=== PATIENT | male | born 1965 | race African-American/Black ===

== ENCOUNTER 2017-12-02 07:51 | Inpatient (IN) | payer MEDICARE, OTHER ==
[~2017-12-02] VITALS: Ht 175.3 cm; Wt 65.0 kg
[2017-12-02] VITALS (9 sets, daily range): BP systolic 133–145; BP diastolic 74–92; PULSE 90–98; RESP 16–20; TEMP 95.8–99.9; O2SAT 79–100
[~2017-12-02 07:51] MED LIST: THIA100T PO
--- NOTE | 2017-12-02 07:56 | PD ---
HPI Chief Complaint: abdominal pain Time Seen by Provider: 07:56 Travel History International Travel<30 days: No Contact w/Intl Traveler<30days: No Traveled to known affect area: No History of Present Illness HPI 52-year-old male came to the emergency room complaining of abdominal pain that started this morning. Patient was brought in by EMS. He is extremely disheveled and poor hygiene. He could be a homeless. Patient denies having this kind of pain in the past. He thinks because he did not eat anything in past 24 hours could be the cause of his pain. Upon asking he said he had one beer last night. No history of vomiting or diarrhea. Patient points to the center of his abdomen when I asked the location of the pain. No radiation of the pain as far as I understand. No known aggravating or relieving factors patient identified. Vital signs are otherwise stable. Patient appears to be in moderate distress. PFSH Past Medical History Narrative Medical List of his past medical, surgical, social and family history is reviewed from the nursing note. Hx Anticoagulant Therapy: No Arthritis: Yes Asthma: Yes Autoimmune Disease: No Blood Disorders: No Bipolar Disorder: Yes Anxiety: Yes Depression: Yes Heart Rhythm Problems: No Cancer: No Cardiovascular Problems: No High Cholesterol: No Chemotherapy: No Chest Pain: No Congestive Heart Failure: No COPD: No Cerebrovascular Accident: Yes Diabetes: Yes Diminished Hearing: No Endocrine: No Gastrointestinal Disorders: No Glaucoma: No Genitourinary: No Headaches: Yes Hepatitis: No Hypertension: Yes Immune Disorder: No Kidney Stones: No Musculoskeletal: No Neurologic: Yes Psychiatric: Yes Reproductive: No Respiratory: No Immunizations Current: No Migraines: No Myocardial Infarction: No Radiation Therapy: No Renal Failure: No Schizophrenia: Yes (NOT TAKING MEDS) Seizures: No Sleep Apnea: No Thyroid Disease: No Past Surgical History Abdominal Surgery: No AICD: No Arteriovenous Shunt: No Cardiac Surgery: No Ear Surgery: No Endocrine Surgery: No Eye Surgery: No Genitourinary Surgery: No Gynecologic Surgery: No Joint Replacement: No Neurologic Surgery: No Oral Surgery: No Pacemaker: No Thoracic Surgery: No Other Surgery: No Social History Alcohol Use: Yes (2-3 24OZ BEER/DAY) Tobacco Use: No Substance Use: No (denies) Allergies-Medications (Allergen,Severity, Reaction): Coded Allergies: No Known Allergies (Verified Allergy, Unknown, 12/02/17) Comments No known drug allergies. Reported Meds & Prescriptions Reported Meds & Active Scripts Active No Active Prescriptions or Reported Medications Narrative Medication List of his home medications reviewed from the nursing note. Review of Systems Except as stated in HPI: all other systems reviewed are Neg Gastrointestinal: Positive: Abdominal Pain Physical Exam Narrative GENERAL: Awake, alert, moderate distress, disheveled and poor hygiene SKIN: Focused skin assessment warm/dry. Poor hygiene HEAD: Atraumatic. Normocephalic. EYES: Pupils equal and round. No scleral icterus. No injection or drainage. ENT: No nasal bleeding or discharge. Mucous membranes pink and moist. Poor dentition NECK: Trachea midline. No JVD. CARDIOVASCULAR: Regular rate and rhythm. No murmur appreciated. RESPIRATORY: No accessory muscle use. Clear to auscultation. Breath sounds equal bilaterally. GASTROINTESTINAL: Abdomen soft, non-tender, nondistended. Hepatic and splenic margins not palpable. MUSCULOSKELETAL: No obvious deformities. No clubbing. No cyanosis. No edema. NEUROLOGICAL: Awake and alert. No obvious cranial nerve deficits. Motor grossly within normal limits. Normal speech. PSYCHIATRIC: Appropriate mood and affect; insight and judgment normal. Data Data Last Documented VS Vital Signs Date Time Temp Pulse Resp B/P (MAP) Pulse Ox O2 Delivery O2 Flow Rate FiO2 12/02/17 08:16 20 99 Room Air 12/02/17 07:57 98.0 90 145/92 (109) Orders Orders Complete Blood Count With Diff (12/02/17 08:05) Comprehensive Metabolic Panel (12/02/17 08:05) Lipase (12/02/17 08:05) Urinalysis - C+S If Indicated (12/02/17 08:05) Iv Access Insert/Monitor (12/02/17 08:05) Ecg Monitoring (12/02/17 08:05) Oximetry (12/02/17 08:05) Pantoprazole Inj (Protonix Inj) (12/02/17 08:15) Sodium Chlor 0.9% 1000 Ml Inj (Ns 1000 M (12/02/17 08:05) Sodium Chloride 0.9% Flush (Ns Flush) (12/02/17 08:15) Electrocardiogram (12/02/17 08:05) Troponin I (12/02/17 08:29) Alcohol (Ethanol) (12/02/17 08:53) Hydromorphone Pf Inj (Dilaudid Pf Inj) (12/02/17 09:00) Ondansetron Inj (Zofran Inj) (12/02/17 09:00) Sodium Chlor 0.9% 1000 Ml Inj (Ns 1000 M (12/02/17 09:00) Admit Order (Ed Use Only) (12/02/17 09:28) Labs Laboratory Tests Test 12/02/17 08:07 White Blood Count 4.5 TH/MM3 Red Blood Count 4.04 MIL/MM3 Hemoglobin 12.8 GM/DL Hematocrit 38.7 % Mean Corpuscular Volume 95.9 FL Mean Corpuscular Hemoglobin 31.7 PG Mean Corpuscular Hemoglobin Concent 33.1 % Red Cell Distribution Width 12.6 % Platelet Count 115 TH/MM3 Mean Platelet Volume 6.7 FL Neutrophils (%) (Auto) 74.8 % Lymphocytes (%) (Auto) 18.7 % Monocytes (%) (Auto) 5.9 % Eosinophils (%) (Auto) 0.1 % Basophils (%) (Auto) 0.5 % Neutrophils # (Auto) 3.4 TH/MM3 Lymphocytes # (Auto) 0.8 TH/MM3 Monocytes # (Auto) 0.3 TH/MM3 Eosinophils # (Auto) 0.0 TH/MM3 Basophils # (Auto) 0.0 TH/MM3 CBC Comment DIFF FINAL Differential Comment Blood Urea Nitrogen 5 MG/DL Creatinine 0.66 MG/DL Random Glucose 77 MG/DL Total Protein 9.2 GM/DL Albumin 4.4 GM/DL Calcium Level 9.3 MG/DL Alkaline Phosphatase 100 U/L Aspartate Amino Transf (AST/SGOT) 127 U/L Alanine Aminotransferase (ALT/SGPT) 51 U/L Total Bilirubin 0.5 MG/DL Sodium Level 137 MEQ/L Potassium Level 3.9 MEQ/L Chloride Level 101 MEQ/L Carbon Dioxide Level 23.7 MEQ/L Anion Gap 12 MEQ/L Estimat Glomerular Filtration Rate 154 ML/MIN Troponin I LESS THAN 0.02 NG/ML Lipase 3910 U/L Ethyl Alcohol Level 122 MG/DL [facility] Medical Decision Making Medical Screen Exam Complete: Yes Emergency Medical Condition: Yes Medical Record Reviewed: Yes Interpretation(s) Twelve-lead EKG was reviewed by me. Normal sinus rhythm, normal axis, LVH by voltage criteria, septal T-wave inversion. Heart rate of 78 bpm. Differential Diagnosis Acute pancreatitis, acute cholecystitis, ACS Narrative Course 8:55 AM blood test results of back and patient's lipase is significantly elevated. Awaiting for the troponin and alcohol level. Patient was initially given 1 L of IV fluid bolus and IV Protonix. I'll order pain medication and another liter bolus. Patient will need to be admitted for acute pancreatitis. Awaiting for the admitting physician to call back. Procedures EKG Prior to Arrival: No Diagnosis Primary Impression: Acute pancreatitis Qualified Codes: K85.20 - Alcohol induced acute pancreatitis without necrosis or infection Additional Impression: Intractable abdominal pain Admitting Information Admitting Physician Requests: Admit Scripts No Active Prescriptions or Reported Meds Demetrio Hawthorne MD Dec 02, 2017 07:56
[2017-12-02] MEDS ORDERED: SODIUM CHLOR 0.9% 1000 ML INJ 1,000 ML IV SCH (08:05)
[2017-12-02] MEDS ORDERED: SODIUM CHLORIDE 0.9% FLUSH 10 ML FLUSH IV FLUSH PRN ×2 (08:15→10:15)
[2017-12-02] MEDS ORDERED: PANTOPRAZOLE SODIUM 40 MG VIAL IVP ONE (08:15)
[2017-12-02 08:22] LABS: AUTOMATED NEUTROPHIL # 3.4 TH/MM3 (1.8-7.7); BASOPHIL % 0.5 % (0.0-2.0); EOSINOPHIL % 0.1 % (0.0-4.0); HEMATOCRIT 38.7 % (39.0-51.0); HEMOGLOBIN 12.8 GM/DL (13.0-17.0); LYMPH % 18.7 % (9.0-44.0); LYMPHOCYTE # 0.8 TH/MM3 (1.0-4.8); MEAN CELL VOLUME 95.9 FL (80.0-100.0); MEAN CORPUSCULAR HEMOGLOBIN 31.7 PG (27.0-34.0); MEAN CORPUSCULAR HGB CONC 33.1 % (32.0-36.0); MEAN PLATELET VOLUME 6.7 FL (7.0-11.0); MONO % 5.9 % (0.0-8.0); MONOCYTE # 0.3 TH/MM3 (0-0.9); NEUT % 74.8 % (16.0-70.0); PLATELET COUNT 115 TH/MM3 (150-450); RED BLOOD COUNT 4.04 MIL/MM3 (4.50-5.90); RED CELL DISTRIBUTION WIDTH 12.6 % (11.6-17.2); WHITE BLOOD COUNT 4.5 TH/MM3 (4.0-11.0)
[2017-12-02 08:36] LABS: ALBUMIN 4.4 GM/DL (3.4-5.0); ALT (GPT) 51 U/L (12-78); AST (GOT) 127 U/L (15-37); BICARBONATE 23.7 MEQ/L (21.0-32.0); BLOOD UREA NITROGEN 5 MG/DL (7-18); CALCIUM 9.3 MG/DL (8.5-10.1); CHLORIDE 101 MEQ/L (98-107); CREATININE 0.66 MG/DL (0.60-1.30); GLOMERULAR FILTRATION RATE 154 ML/MIN (>89); GLUCOSE,RANDOM 77 MG/DL (74-106); SODIUM (NA) 137 MEQ/L (136-145)
[2017-12-02 08:38] LABS: ALKALINE PHOSPHATASE 100 U/L (45-117); TOTAL BILIRUBIN ADULT 0.5 MG/DL (0.2-1.0); TOTAL PROTEIN 9.2 GM/DL (6.4-8.2)
[2017-12-02] MEDS ORDERED: HYDROmorphone HCL PF 1 MG/ML VIAL IV PUSH ONE (09:00)
[2017-12-02] MEDS ORDERED: ONDANSETRON HCL 4 MG/2 ML VIAL IV PUSH ONE (09:00)
[2017-12-02] MEDS ORDERED: SODIUM CHLOR 0.9% 1000 ML INJ 1,000 ML IV ONE (09:00)
--- NOTE | 2017-12-02 09:55 | HHI.HP ---
HPI Service Family Medicine Primary Care Physician Unknown Admission Diagnosis acute pancreatitis, intractable abdominal pain Diagnoses: Chief Complaint: abdominal pain International Travel<30 Days: No Contact w/Intl Traveler<30days: No Known Affected Area: No History of Present Illness Mr Demarco is a 52 YO male with PMHx of headaches, asthma and EtOH abuse who presents with acute abdominal pain overnight with no N/V/D. Pt states problem began overnight w/abdom pain 10/10 on pain scale. Pain is like a screw being bored thru him; just in his stomach. There is no radiation. States he had a similar problem about 3 years ago. Also states he is a little short of breath but takes no meds for his asthma. He has been hospitalized at [facility] before numerous times, but not since Jul 2016. Pt is homeless and drinks 1-3 beers 3-4 times per week. His last drink was last night. He also states he has not eaten since yesterday and is not hungry now. Denies having EtOH withdrawal seizure before but has gotten the shakes when withdrawing. Denies CP, DVT pain. (Alfredo Mccullough MD R1) Review of Systems Constitutional: COMPLAINS OF: Change in appetite (hasnt eaten since yesterday) , DENIES: Chills, Dizziness Eyes: COMPLAINS OF: Blurred vision, DENIES: Vision loss Respiratory: COMPLAINS OF: Shortness of breath, DENIES: Cough Cardiovascular: DENIES: Chest pain, Palpitations Gastrointestinal: COMPLAINS OF: Abdominal pain, DENIES: Diarrhea, Nausea, Vomiting Genitourinary: DENIES: Urinary incontinence, Urgency Musculoskeletal: DENIES: Muscle aches Integumentary: DENIES: Rash Neurologic: DENIES: Headache, Seizures (Alfredo Mccullough MD R1) Past Family Social History Past Medical History Headaches Asthma Past Surgical History None Reported Medications Reported Meds & Active Scripts Active No Active Prescriptions or Reported Medications (Alfredo Mccullough MD R1) Allergies: Coded Allergies: No Known Allergies (Verified Allergy, Unknown, 12/02/17) Active Ordered Medications Current Medications Medications (Trade) Dose Ordered Sig/Edy Route Start Time Stop Time Status Last Admin (NS Flush) 2 ml UNSCH PRN IV FLUSH 12/02/17 08:15 Sodium Chloride 1,000 ml @ 999 mls/hr BOLUS ONCE IV 12/02/17 09:00 12/02/17 10:00 Social History Homeless; has been to a nursing home before EtOH - yes Tobacco - no Drugs - no (Alfredo Mccullough MD R1) Physical Exam Vital Signs Vital Signs Date Time Temp Pulse Resp B/P (MAP) Pulse Ox O2 Delivery O2 Flow Rate FiO2 12/02/17 09:31 16 99 Nasal Cannula 2.00 12/02/17 09:30 16 79 Room Air 12/02/17 08:16 20 99 Room Air 12/02/17 07:57 98.0 90 20 145/92 (109) 99 Physical Exam GENERAL: This is a thin and unkempt middle aged man lying in bed who smells of urine. SKIN: No rashes, ecchymoses or lesions. Cool and dry. HEAD: Atraumatic. Normocephalic. No scalp tenderness. EYES: Pupils equal round and reactive. Extraocular motions intact. No scleral icterus. No injection or drainage. ENT: Nose without bleeding or drainage. Throat without erythema, tonsillar hypertrophy or exudate. Uvula midline. Airway patent. Poor dentition. NECK: Trachea midline. No JVD or lymphadenopathy. Supple, nontender, no meningeal signs. CARDIOVASCULAR: Regular rate and rhythm without murmurs, gallops, or rubs. RESPIRATORY: Clear to auscultation. Breath sounds equal bilaterally. No wheezes , rales, or rhonchi. GASTROINTESTINAL: Abdomen soft, moderately TTP, nondistended. No hepato- splenomegaly, or palpable masses. No guarding. MUSCULOSKELETAL: Extremities without clubbing, cyanosis, or edema. No joint tenderness, effusion, or edema noted. No calf tenderness. NEUROLOGICAL: Awake and alert. Cranial nerves II through XII intact. Motor and sensory grossly within normal limits. Five out of 5 muscle strength in all muscle groups. Normal speech. Laboratory Laboratory Tests Test 12/02/17 08:07 White Blood Count 4.5 Red Blood Count 4.04 Hemoglobin 12.8 Hematocrit 38.7 Mean Corpuscular Volume 95.9 Mean Corpuscular Hemoglobin 31.7 Mean Corpuscular Hemoglobin Concent 33.1 Red Cell Distribution Width 12.6 Platelet Count 115 Mean Platelet Volume 6.7 Neutrophils (%) (Auto) 74.8 Lymphocytes (%) (Auto) 18.7 Monocytes (%) (Auto) 5.9 Eosinophils (%) (Auto) 0.1 Basophils (%) (Auto) 0.5 Neutrophils # (Auto) 3.4 Lymphocytes # (Auto) 0.8 Monocytes # (Auto) 0.3 Eosinophils # (Auto) 0.0 Basophils # (Auto) 0.0 CBC Comment DIFF FINAL Differential Comment Blood Urea Nitrogen 5 Creatinine 0.66 Random Glucose 77 Total Protein 9.2 Albumin 4.4 Calcium Level 9.3 Alkaline Phosphatase 100 Aspartate Amino Transf (AST/SGOT) 127 Alanine Aminotransferase (ALT/SGPT) 51 Total Bilirubin 0.5 Sodium Level 137 Potassium Level 3.9 Chloride Level 101 Carbon Dioxide Level 23.7 Anion Gap 12 Estimat Glomerular Filtration Rate 154 Troponin I LESS THAN 0.02 Lipase 3910 Ethyl Alcohol Level 122 (Alfredo Mccullough MD R1) Result Diagram: 12/02/17 0812/02/17 08 Septic Shock Reassessment Septic shock perfusion: reassessment completed (Alfredo Mccullough MD R1) Caprini VTE Risk Assessment Caprini VTE Risk Assessment: No/Low Risk (score <= 1) Caprini Risk Assessment Model Point Value = 1 Point Value = 2 Point Value = 3 Point Value = 5 Age 41-60 Minor surgery BMI > 25 kg/m2 Swollen legs Varicose veins or History of unexplained or recurrent spontaneous Oral contraceptives or hormone replacement Sepsis (< 1 month) Serious lung disease, including pneumonia (< 1 month) Abnormal pulmonary function Acute myocardial infarction Congestive heart failure (< 1 month) History of inflammatory bowel disease Medical patient at bed rest Age 61-74 Arthroscopic surgery Major open surgery (> 45 min) Laparoscopic surgery (> 45 min) Malignancy Confined to bed (> 72 hours) Immobilizing plaster cast Central venous access Age >= 75 History of VTE Family history of VTE Factor V Leiden Prothrombin [id number] Lupus anticoagulant Anticardiolipin antibodies Elevated serum homocysteine Heparin-induced thrombocytopenia Other congenital or acquired thrombophilia Stroke (< 1 month) Elective arthroplasty Hip, pelvis, or leg fracture Acute spinal cord injury (< 1 month) Prophylaxis Regimen Total Risk Factor Score Risk Level Prophylaxis Regimen 0-1 Low Early ambulation 2 Moderate Order ONE of the following: *Sequential Compression Device (SCD) *Heparin 5000 units SQ BID 3-4 Higher Order ONE of the following medications: *Heparin 5000 units SQ TID *Enoxaparin/Lovenox 40 mg SQ daily (WT < 150 kg, CrCl > 30 mL/min) *Enoxaparin/Lovenox 30 mg SQ daily (WT < 150 kg, CrCl > 10-29 mL/min) *Enoxaparin/Lovenox 30 mg SQ BID (WT < 150 kg, CrCl > 30 mL/min) AND/OR *Sequential Compression Device (SCD) 5 or more Highest Order ONE of the following medications: *Heparin 5000 units SQ TID (Preferred with Epidurals) *Enoxaparin/Lovenox 40 mg SQ daily (WT < 150 kg, CrCl > 30 mL/min) *Enoxaparin/Lovenox 30 mg SQ daily (WT < 150 kg, CrCl > 10-29 mL/min) *Enoxaparin/Lovenox 30 mg SQ BID (WT < 150 kg, CrCl > 30 mL/min) AND *Sequential Compression Device (SCD) (Alfredo Mccullough MD R1) Assessment and Plan Assessment and Plan 52YO male w/PMHx headaches, asthma and EtOH abuse presents with abdominal pain, no emesis and acute pancreatitis with elevated AST to 121 normal ALT, and Lipase 3910. Problems: 1.Acute pancreatitis 2/2 EtOH abuse -Lipase 3910 -EtOH 122 on admit -AST 2.SOB w/hx asthma -Stable and no increased WOB on 2LNC -Start Albuterol nebs q3h -CXR pending 3. Elevated AST 2/2 EtOH 3.Thrombocytopenia -Plts 115 on admit 4. Homeless -CM consult Pt seen and dw Lyssa Jaquez and Gerald Fabian Code Status FULL code (Alfredo Mccullough MD R1) Attending Attestation Patient seen and examined. Case reviewed and discussed with the resident team. Agree with plan of care as discussed with me and documented in the resident note. agree with treatment for acute pancreatitis in a gentleman with a strong alcohol history. no evidence of gallstones at this time (Daria Jaquez MD) Problem List: (1) Acute pancreatitis ICD Codes: K85.90 - Acute pancreatitis without necrosis or infection, unspecified Status: Acute Plan: Abdominal pain overnight with Lipase 3910 and AST 121 (ALT 51) with EtOH level 122 on admit PLAN: -NPO (will allow sips/chips if pt requests) -Morphine 2mg IV pain 6-10 -Morphine 4mg IV breakthru -Zofran 4mg IV q6h nausea -Tylenol 650mg q6h fever -LR IVF @ 200ml/hr -Protonix 40mg daily -Daily labs and Lipase to follow Troponin <0.02 WBC 4.5 (2) ETOH abuse ICD Codes: F10.10 - Alcohol abuse, uncomplicated Status: Chronic Plan: Pt with chronic EtOH use (drinks 1-3 beers 3-4x/week) -Pt precontemplative about quitting -Pt will think about possible placement in EtOH rehab on DC (3) Elevated AST (SGOT) ICD Codes: R74.0 - Nonspecific elevation of levels of transaminase and lactic acid dehydrogenase [LDH] Plan: 2/2 EtOH use -Follow daily CMP (4) Thrombocytopenia ICD Codes: D69.6 - Thrombocytopenia, unspecified Plan: PLTs 115 on admit; will follow daily CBC (5) Asthma ICD Codes: J45.909 - Unspecified asthma, uncomplicated Status: Chronic Plan: Pt indicating he is SOB on admit and takes no asthma meds; afebrile, RR 16, desaturated to 79% on RA on admit; comfortable and satting 99% on 2LNC -Albuterol nebs q4h scheduled for now -CXR pending (6) Intractable abdominal pain ICD Codes: R10.9 - Unspecified abdominal pain Status: Acute Plan: Pain control as above IVF as above Monitor clinically (7) FEN/GI/PPx Status: Acute Plan: Fluids: as above Electrolytes: wnl on admit; follow daily and replete as necessary Nutrition: NPO for now; allowing sips and chips; advance diet as requested by pt GI: Protonix as above PPx: normal renal function; Lovenox 40mg subcu daily Bowel regimen on opioid pain meds PT to assess tomorrow (Alfredo Mccullough MD R1) Problem Qualifiers (1) Acute pancreatitis: Qualified Codes: K85.20 - Alcohol induced acute pancreatitis without necrosis or infection Alfredo Mccullough MD R1 Dec 02, 2017 09:55 Daria Jaquez MD Dec 03, 2017 14:50
[2017-12-02] MEDS ORDERED: MORPHINE SULFATE 4 MG/ML INJ IV PUSH ONE (10:00)
[2017-12-02] MEDS: LACTATED RINGER'S 1000 ML INJ 1,000 ML IV SCH ×3 (10:02→21:00)
[2017-12-02] MEDS ORDERED: LORazepam 2 MG/ML VIAL IV PUSH PRN ×3 (10:15)
[2017-12-02] MEDS ORDERED: MAGNESIUM HYDROXIDE SUSP 30 ML CUP PO PRN (10:15)
[2017-12-02] MEDS ORDERED: BISACODYL 10 MG SUPP RECTAL PRN (10:15)
[2017-12-02] MEDS ORDERED: SENNOSIDES 8.6 MG TAB PO PRN (10:15)
[2017-12-02] MEDS ORDERED: LACTULOSE SYRUP 20 GM/30 ML CUP PO PRN (10:15)
[2017-12-02] MEDS ORDERED: LORazepam 1 MG TAB PO PRN (10:15)
[2017-12-02] MEDS ORDERED: ACETAMINOPHEN 325 MG TAB PO PRN (10:15)
[2017-12-02] MEDS ORDERED: ONDANSETRON HCL 4 MG/2 ML VIAL IVP PRN (10:15)
[2017-12-02] MEDS ORDERED: LORazepam 2 MG TAB PO PRN (10:15)
[2017-12-02] MEDS ORDERED: FLUMAZENIL 0.5 MG/5 ML VIAL IV PUSH PRN (10:15)
[2017-12-02] MEDS ORDERED: NALOXONE HCL 0.4 MG/ML AMP IV PUSH PRN (10:15)
--- NOTE | 2017-12-02 10:40 | RADRPT ---
EXAM DATE/TIME: 12/02/2017 10:21 [place] COMPARISON: No previous studies available for comparison. INDICATIONS : Short of breath, abdominal pain MEDICAL HISTORY : Pancreatitis. CVA SURGICAL HISTORY : None. ENCOUNTER: Initial ACUITY: 1 day PAIN SCORE: Non-responsive. LOCATION: Bilateral chest FINDINGS: A single view of the chest demonstrates the lungs to be symmetrically aerated without evidence of mas s, infiltrate or effusion. The cardiomediastinal contours are unremarkable. Osseous structures are intact. CONCLUSION: No acute disease. Andreas Dinero MD FACR on December 02, 2017 at 10:39 Board Certified Radiologist. This report was verified electronically.
[2017-12-02] MEDS: ENOXAPARIN SODIUM 40 MG/0.4 ML SYRINGE SQ SCH (11:48)
[2017-12-02] MEDS: LORazepam 2 MG/ML VIAL IV PUSH PRN (12:02)
[2017-12-02] MEDS: MORPHINE SULFATE 2 MG/ML INJ IV PUSH PRN ×2 (14:00→20:21)
[2017-12-02] MEDS: RESP: ALBUTEROL 2.5 MG/3 ML NEB (SCH) NEB ×3 (15:58→23:50)
[2017-12-02 18:04] LABS: BACTERIA, URINE RARE /hpf; BILIRUBIN, URINE NEG (NEG); BLOOD, URINE NEG (NEG); GLUCOSE,URINE NEG (NEG); KETONE, URINE 40 mg/dL (NEG); MUCUS URINE FEW /lpf (OCC); NITRITE,URINE NEG (NEG); URINE COLOR YELLOW (YELLW/STRAW); URINE LEUKOCYTE ESTERASE NEG (NEG)
[2017-12-02] MEDS: DOCUSATE SODIUM 50 MG/SENNA 8.6 MG TAB PO SCH (20:21)
[2017-12-02] MEDS: SODIUM CHLORIDE 0.9% FLUSH 10 ML FLUSH IV FLUSH SCH (21:00)
[2017-12-03] VITALS (9 sets, daily range): BP systolic 133–147; BP diastolic 82–95; PULSE 101–109; RESP 18–19; TEMP 96.9–98.9; O2SAT 94–97
[2017-12-03] MEDS: MORPHINE SULFATE 2 MG/ML INJ IV PUSH PRN ×3 (00:08→20:22)
[2017-12-03] MEDS: RESP: ALBUTEROL 2.5 MG/3 ML NEB (SCH) NEB ×6 (04:22→23:33)
[2017-12-03] MEDS: LORazepam 2 MG/ML VIAL IV PUSH PRN ×5 (04:39→22:29)
[2017-12-03] MEDS: PANTOPRAZOLE SOD 40 MG DELAYED RELEASE TAB PO SCH (08:08)
[2017-12-03] MEDS: MORPHINE SULFATE 4 MG/ML INJ IV PUSH PRN ×2 (08:15→14:21)
[2017-12-03] MEDS: DOCUSATE SODIUM 50 MG/SENNA 8.6 MG TAB PO SCH ×2 (08:15→20:22)
[2017-12-03] MEDS: SODIUM CHLORIDE 0.9% FLUSH 10 ML FLUSH IV FLUSH SCH ×2 (08:15→20:22)
[2017-12-03 08:16] LABS: AUTOMATED NEUTROPHIL # 3.3 TH/MM3 (1.8-7.7); BASOPHIL % 0.2 % (0.0-2.0); EOSINOPHIL % 0.3 % (0.0-4.0); HEMATOCRIT 35.5 % (39.0-51.0); LYMPH % 13.9 % (9.0-44.0); LYMPHOCYTE # 0.6 TH/MM3 (1.0-4.8); MEAN CELL VOLUME 95.1 FL (80.0-100.0); MEAN CORPUSCULAR HEMOGLOBIN 32.2 PG (27.0-34.0); MEAN CORPUSCULAR HGB CONC 33.8 % (32.0-36.0); MEAN PLATELET VOLUME 7.5 FL (7.0-11.0); MONO % 8.6 % (0.0-8.0); MONOCYTE # 0.4 TH/MM3 (0-0.9); PLATELET COUNT 96 TH/MM3 (150-450); RED BLOOD COUNT 3.73 MIL/MM3 (4.50-5.90); RED CELL DISTRIBUTION WIDTH 12.8 % (11.6-17.2); WHITE BLOOD COUNT 4.3 TH/MM3 (4.0-11.0)
[2017-12-03] MEDS: LACTATED RINGER'S 1000 ML INJ 1,000 ML IV SCH ×3 (08:16→22:50)
[2017-12-03 08:22] LABS: INTERNATIONAL NORMALIZED RATIO 1.1 RATIO; PROTHROMBIN TIME - PATIENT 11.2 SEC (9.8-11.6)
[2017-12-03 09:01] LABS: ALBUMIN 3.5 GM/DL (3.4-5.0); AST (GOT) 57 U/L (15-37); BICARBONATE 30.3 MEQ/L (21.0-32.0); BLOOD UREA NITROGEN 5 MG/DL (7-18); CALCIUM 9.1 MG/DL (8.5-10.1); CHLORIDE 99 MEQ/L (98-107); CREATININE 0.68 MG/DL (0.60-1.30); GLOMERULAR FILTRATION RATE 148 ML/MIN (>89); GLUCOSE,RANDOM 89 MG/DL (74-106); SODIUM (NA) 136 MEQ/L (136-145)
[2017-12-03 09:06] LABS: ALKALINE PHOSPHATASE 76 U/L (45-117); ALT (GPT) 35 U/L (12-78); TOTAL BILIRUBIN ADULT 0.6 MG/DL (0.2-1.0); TOTAL PROTEIN 7.6 GM/DL (6.4-8.2)
[2017-12-03] MEDS ORDERED: PNEUMOCOCCAL POLYVALENT INJ 25 MCG/0.5 ML SYR IM ONE (10:00)
[2017-12-03] MEDS ORDERED: INFLUENZA VIRUS VACCINE (QUADRIVALENT) 0.5 ML SYR IM ONE (10:00)
[2017-12-03] MEDS: ENOXAPARIN SODIUM 40 MG/0.4 ML SYRINGE SQ SCH (11:17)
[2017-12-03] MEDS: ACETAMINOPHEN/HYDROcodone 325 MG/5 MG TAB PO SCH ×3 (11:18→22:29)
--- NOTE | 2017-12-03 14:48 | HHI.HP ---
[facility] Service Family Medicine Primary Care Physician No Primary Care Physician Admission Diagnosis acute pancreatitis, intractable abdominal pain Diagnoses: (1) Acute pancreatitis Diagnosis: Principal (2) ETOH abuse Diagnosis: Principal (3) Elevated AST (SGOT) Diagnosis: Principal (4) Thrombocytopenia Diagnosis: Principal (5) Asthma Diagnosis: Principal (6) Intractable abdominal pain Diagnosis: Principal (7) FEN/GI/PPx Diagnosis: Principal International Travel<30 Days: No Contact w/Intl Traveler<30days: No Known Affected Area: No History of Present Illness Mr Demarco is a 52 YO male with PMHx of headaches, asthma and EtOH abuse who presented with acute abdominal pain with no V/D. Pt states problem began in the night w/abdom pain 10/10 on pain scale. Pain is like a screw being bored thru him; just in his stomach. There is no radiation. States he had a similar problem about 3 years ago. Also states he is a little short of breath but takes no meds for his asthma. He has been hospitalized at [facility] before numerous times, but not since Jul 2016. Pt is homeless and drinks 1-3 beers of large size 3-4 times per week. His last drink was the night before admission. He also stated he has not eaten and was not hungry. Denies having EtOH withdrawal seizure before but has gotten the shakes when withdrawing. Denies CP, DVT pain. Overnight, he would get some relief with his pain meds but per his nurse they would not last very long before he would be in pain again. His labs improved except his lipase is more elevated now. Review of Systems Other Constitutional: COMPLAINS OF: Change in appetite (hasnt eaten since yesterday) , DENIES: Chills, Dizziness Eyes: COMPLAINS OF: Blurred vision, DENIES: Vision loss Respiratory: COMPLAINS OF: Shortness of breath, DENIES: Cough Cardiovascular: DENIES: Chest pain, Palpitations Gastrointestinal: COMPLAINS OF: Abdominal pain, DENIES: Diarrhea, Nausea, Vomiting Genitourinary: DENIES: Urinary incontinence, Urgency Musculoskeletal: DENIES: Muscle aches Integumentary: DENIES: Rash Neurologic: DENIES: Headache, Seizures Past Family Social History Past Medical History Headaches Asthma Past Surgical History None Reported Medications none Allergies: Coded Allergies: No Known Allergies (Verified Allergy, Unknown, 12/02/17) Family History not in contact with his family now Social History Homeless; has been to a fpc before EtOH - yes Tobacco - no Drugs - no Physical Exam Vital Signs Vital Signs Date Time Temp Pulse Resp B/P (MAP) Pulse Ox O2 Delivery O2 Flow Rate FiO2 12/03/17 10:50 97.0 106 18 143/92 (109) 94 12/03/17 08:03 95 21 12/03/17 07:35 98.5 104 18 147/90 (109) 96 12/03/17 04:30 98.6 106 19 133/89 (104) 97 12/03/17 04:24 96 Nasal Cannula 1.00 12/03/17 00:05 98.9 103 18 144/82 (102) 97 12/02/17 23:50 21 12/02/17 20:19 99.9 98 18 141/83 (102) 97 12/02/17 16:00 95.8 98 16 142/74 (96) 98 12/02/17 15:58 94 21 Physical Exam GENERAL: This is a thin and unkempt middle aged man lying in bed who smelled of urine. today right after pain meds, he was a bit sedated but arousable and would answer question when prompted SKIN: No rashes, ecchymoses or lesions. Cool and dry. HEAD: Atraumatic. Normocephalic. EYES: Pupils equal round and reactive. Extraocular motions intact. No scleral icterus. No injection or drainage. ENT: Nose without bleeding or drainage. Throat without erythema, tonsillar hypertrophy or exudate. Uvula midline. Airway patent. Poor dentition with mainly missing teeth and others look like they need to be all pulled. NECK: Trachea midline. No JVD or lymphadenopathy. Supple, nontender, no meningeal signs. CARDIOVASCULAR: Regular rate and rhythm without murmurs, gallops, or rubs. RESPIRATORY: Clear to auscultation. Breath sounds equal bilaterally. No wheezes , rales, or rhonchi. GASTROINTESTINAL: Abdomen soft, moderately TTP, nondistended. No hepato- splenomegaly, or palpable masses. No guarding. MUSCULOSKELETAL: Extremities without clubbing, cyanosis, or edema. No joint tenderness, effusion, or edema noted. No calf tenderness. NEUROLOGICAL: Awake and alert. Cranial nerves II through XII intact. Motor and sensory grossly within normal limits. Five out of 5 muscle strength in all muscle groups. Normal speech. Laboratory Laboratory Tests Test 12/02/17 16:55 12/03/17 07:39 Urine Color YELLOW Urine Turbidity CLEAR Urine pH 5.0 Urine Specific [place] 1.018 Urine Protein NEG Urine Glucose (UA) NEG Urine Ketones 40 Urine Occult Blood NEG Urine Nitrite NEG Urine Bilirubin NEG Urine Urobilinogen LESS THAN 2.0 Urine Leukocyte Esterase NEG Urine RBC LESS THAN 1 Urine WBC LESS THAN 1 Urine Bacteria RARE Urine Mucus FEW Microscopic Urinalysis Comment CULT NOT INDICATED White Blood Count 4.3 Red Blood Count 3.73 Hemoglobin 12.0 Hematocrit 35.5 Mean Corpuscular Volume 95.1 Mean Corpuscular Hemoglobin 32.2 Mean Corpuscular Hemoglobin Concent 33.8 Red Cell Distribution Width 12.8 Platelet Count 96 Mean Platelet Volume 7.5 Neutrophils (%) (Auto) 77.0 Lymphocytes (%) (Auto) 13.9 Monocytes (%) (Auto) 8.6 Eosinophils (%) (Auto) 0.3 Basophils (%) (Auto) 0.2 Neutrophils # (Auto) 3.3 Lymphocytes # (Auto) 0.6 Monocytes # (Auto) 0.4 Eosinophils # (Auto) 0.0 Basophils # (Auto) 0.0 CBC Comment AUTO DIFF Differential Comment AUTO DIFF CONFIRMED Prothrombin Time 11.2 Prothromb Time International Ratio 1.1 Blood Urea Nitrogen 5 Creatinine 0.68 Random Glucose 89 Total Protein 7.6 Albumin 3.5 Calcium Level 9.1 Alkaline Phosphatase 76 Aspartate Amino Transf (AST/SGOT) 57 Alanine Aminotransferase (ALT/SGPT) 35 Total Bilirubin 0.6 Sodium Level 136 Potassium Level 3.4 Chloride Level 99 Carbon Dioxide Level 30.3 Anion Gap 7 Estimat Glomerular Filtration Rate 148 Lipase 6253 Result Diagram: 12/03/1773812/03/17738 Caprini VTE Risk Assessment Caprini VTE Risk Assessment: No/Low Risk (score <= 1) Caprini Risk Assessment Model Point Value = 1 Point Value = 2 Point Value = 3 Point Value = 5 Age 41-60 Minor surgery BMI > 25 kg/m2 Swollen legs Varicose veins or History of unexplained or recurrent spontaneous Oral contraceptives or hormone replacement Sepsis (< 1 month) Serious lung disease, including pneumonia (< 1 month) Abnormal pulmonary function Acute myocardial infarction Congestive heart failure (< 1 month) History of inflammatory bowel disease Medical patient at bed rest Age 61-74 Arthroscopic surgery Major open surgery (> 45 min) Laparoscopic surgery (> 45 min) Malignancy Confined to bed (> 72 hours) Immobilizing plaster cast Central venous access Age >= 75 History of VTE Family history of VTE Factor V Leiden Prothrombin [id number] Lupus anticoagulant Anticardiolipin antibodies Elevated serum homocysteine Heparin-induced thrombocytopenia Other congenital or acquired thrombophilia Stroke (< 1 month) Elective arthroplasty Hip, pelvis, or leg fracture Acute spinal cord injury (< 1 month) Prophylaxis Regimen Total Risk Factor Score Risk Level Prophylaxis Regimen 0-1 Low Early ambulation 2 Moderate Order ONE of the following: *Sequential Compression Device (SCD) *Heparin 5000 units SQ BID 3-4 Higher Order ONE of the following medications: *Heparin 5000 units SQ TID *Enoxaparin/Lovenox 40 mg SQ daily (WT < 150 kg, CrCl > 30 mL/min) *Enoxaparin/Lovenox 30 mg SQ daily (WT < 150 kg, CrCl > 10-29 mL/min) *Enoxaparin/Lovenox 30 mg SQ BID (WT < 150 kg, CrCl > 30 mL/min) AND/OR *Sequential Compression Device (SCD) 5 or more Highest Order ONE of the following medications: *Heparin 5000 units SQ TID (Preferred with Epidurals) *Enoxaparin/Lovenox 40 mg SQ daily (WT < 150 kg, CrCl > 30 mL/min) *Enoxaparin/Lovenox 30 mg SQ daily (WT < 150 kg, CrCl > 10-29 mL/min) *Enoxaparin/Lovenox 30 mg SQ BID (WT < 150 kg, CrCl > 30 mL/min) AND *Sequential Compression Device (SCD) Assessment and Plan Assessment and Plan 52YO male w/PMHx headaches, asthma and EtOH abuse presents with abdominal pain, no emesis and acute pancreatitis with elevated AST to 121 normal ALT, and Lipase 3910. Problems: 1.Acute pancreatitis 2/2 EtOH abuse -Lipase 3910 -EtOH 122 on admit -AST 2.SOB w/hx asthma -Stable and no increased WOB on 2LNC -Start Albuterol nebs q3h -CXR pending 3. Elevated AST 2/2 EtOH 3.Thrombocytopenia -Plts 115 on admit 4. Homeless -CM consult Problem List: (1) Acute pancreatitis ICD Codes: K85.90 - Acute pancreatitis without necrosis or infection, unspecified Status: Acute Plan: Abdominal pain overnight with Lipase 3910 now over 6000 and AST 121 (ALT 51) with EtOH level 122 on admit LFTs improving now PLAN: -liquids if thirsty -Morphine 2mg IV pain 6-10 -Morphine 4mg IV breakthru -norco 5 mg po q 6h as his pain meds iv wear off quickly, can adjust as needed -Zofran 4mg IV q6h nausea -Tylenol 650mg q6h fever -LR IVF @ 200ml/hr -Protonix 40mg daily -Daily labs and Lipase to follow Troponin <0.02 WBC [address] abdomen as his lipase is very high. he may have had pancreatitis before and have a pseudocyst or some other problem his vitals and labs are not alarming otherwise (2) ETOH abuse ICD Codes: F10.10 - Alcohol abuse, uncomplicated Status: Chronic Plan: Pt with chronic EtOH use (drinks 1-3 beers 3-4x/week) counselled him on quitting and that he could get more and more problems if he continues alcohol -Pt precontemplative about quitting -Pt will think about possible placement in EtOH rehab on [place] CIWA (3) Elevated AST (SGOT) ICD Codes: R74.0 - Nonspecific elevation of levels of transaminase and lactic acid dehydrogenase [LDH] Plan: 2/2 EtOH use -Follow daily CMP improving already (4) Thrombocytopenia ICD Codes: D69.6 - Thrombocytopenia, unspecified Plan: PLTs 115 on admit; will follow daily CBC. probably from alcohol (5) Asthma ICD Codes: J45.909 - Unspecified asthma, uncomplicated Status: Chronic Plan: Pt indicating he is SOB on admit and takes no asthma meds; afebrile, RR 16, desaturated to 79% on RA on admit; comfortable and satting 99% on 2LNC -Albuterol nebs q4h scheduled for now -CXR pending (6) Intractable abdominal pain ICD Codes: R10.9 - Unspecified abdominal pain Status: Acute Plan: Pain control as above IVF as above Monitor clinically (7) FEN/GI/PPx Status: Acute Plan: Fluids: as above Electrolytes: wnl on admit; follow daily and replete as necessary Nutrition:allowing sips and chips; advance diet as requested by pt to liquids GI: Protonix as above PPx: normal renal function; Lovenox 40mg subcu daily Bowel regimen on opioid pain meds PT to assess tomorrow Problem Qualifiers (1) Acute pancreatitis: Qualified Codes: K85.20 - Alcohol induced acute pancreatitis without necrosis or infection Daria Jaquez MD Dec 03, 2017 14:48
[2017-12-03] MEDS ORDERED: IOHEXOL 350 MG/ML 10 ML VIAL (for RAD DIAG) IVCONTRAST ONE (15:17)
--- NOTE | 2017-12-03 15:47 | RADRPT ---
EXAM DATE/TIME: 12/03/2017 14:59 [place] COMPARISON: No previous studies available for comparison. INDICATIONS : Increased lipase today. IV CONTRAST: 86 cc Omnipaque 350 (iohexol) IV ORAL CONTRAST: No oral contrast ingested. RADIATION DOSE: 13.35 CTDIvol (mGy) MEDICAL HISTORY : Hypertension. Diabetes mellitus type 2. SURGICAL HISTORY : None. ENCOUNTER: Initial ACUITY: 1 day PAIN SCALE: 0/10 LOCATION: abdomen TECHNIQUE: Volumetric scanning of the abdomen and pelvis was performed. Using automated exposure control and ad justment of the mA and/or kV according to patient size, radiation dose was kept as low as reasonably achievable to obtain optimal diagnostic quality images. DICOM format image data is available electro nically for review and comparison. FINDINGS: LOWER LUNGS: There are small bilateral pleural effusions, left greater than right with mild compressive atelectasi s at the lung bases. LIVER: Liver density suggests steatosis. The liver measures 16.3 cm in length. There are multiple calcified gallstones within the gallbladder. No gallbladder wall thickening or inflammatory changes present. Co mmon bile duct is normal in size and no calcified stones are seen within the common duct. There is n o dilation of the biliary tree. SPLEEN: Normal size without lesion. PANCREAS: There is fluid surrounding the pancreatic body and tail. No pancreatic calcifications are present and there is no duct dilatation or pancreatic necrosis. No pseudocyst is seen. KIDNEYS: Normal in size and shape. There is no mass, stone or hydronephrosis. ADRENAL GLANDS: Within normal limits. VASCULAR: There is no aortic aneurysm. There is mild atherosclerotic disease. BOWEL/MESENTERY: The stomach, small bowel, and colon demonstrate no acute abnormality. There is no free intraperitone al air. There is a small volume of free fluid within the abdomen and pelvis. ABDOMINAL WALL: Within normal limits. RETROPERITONEUM: There is no lymphadenopathy. BLADDER: No wall thickening or mass. REPRODUCTIVE: Within normal limits. INGUINAL: There is no lymphadenopathy or hernia. MUSCULOSKELETAL: There are degenerative changes of the lumbar spine. Changes at the left uteric bone could be related to old trauma. No acute finding is identified. CONCLUSION: 1. Fluid and mild inflammatory changes around the pancreas characteristic of acute pancreatitis. Ther e is no pancreatic necrosis or acute complicating factors. 2. There are small bilateral pleural effusions, left larger than right, and there is a small volume o f free fluid within the abdomen and pelvis. 3. Cholelithiasis. However, there is no bile duct dilatation and no calcified stones are seen within the common bile duct. 4. Hepatic steatosis. Jeremy Reyes MD on December 03, 2017 at 15:39 Board Certified Radiologist. This report was verified electronically.
--- NOTE | 2017-12-03 23:00 | EKG ---
Date Performed: 12/02/2017 Time Performed: 08:26:11 PTAGE: 52 years EKG: Sinus rhythm MODERATE T-WAVE ABNORMALITY ABNORMAL ECG Compared to prior tracing, T WAVE CHANGES PRESENT DOCTOR: Alcon Reynoso Interpretating Date/Time 12/03/2017 22:59:12
[2017-12-04] VITALS (9 sets, daily range): BP systolic 134–144; BP diastolic 84–98; PULSE 108–123; RESP 16–19; TEMP 95.6–99.2; O2SAT 92–100
[2017-12-04] MEDS: RESP: ALBUTEROL 2.5 MG/3 ML NEB (SCH) NEB ×6 (04:10→23:20)
[2017-12-04] MEDS: ACETAMINOPHEN/HYDROcodone 325 MG/5 MG TAB PO SCH ×4 (05:17→21:07)
[2017-12-04] MEDS: LACTATED RINGER'S 1000 ML INJ 1,000 ML IV SCH ×5 (05:26→22:02)
[2017-12-04 07:18] LABS: AUTOMATED NEUTROPHIL # 3.9 TH/MM3 (1.8-7.7); BASOPHIL % 0.2 % (0.0-2.0); EOSINOPHIL % 0.7 % (0.0-4.0); HEMATOCRIT 37.4 % (39.0-51.0); HEMOGLOBIN 12.5 GM/DL (13.0-17.0); LYMPHOCYTE # 0.6 TH/MM3 (1.0-4.8); MEAN CELL VOLUME 95.4 FL (80.0-100.0); MEAN CORPUSCULAR HGB CONC 33.6 % (32.0-36.0); MEAN PLATELET VOLUME 7.8 FL (7.0-11.0); MONO % 7.7 % (0.0-8.0); MONOCYTE # 0.4 TH/MM3 (0-0.9); NEUT % 79.4 % (16.0-70.0); PLATELET COUNT 103 TH/MM3 (150-450); RED BLOOD COUNT 3.92 MIL/MM3 (4.50-5.90); RED CELL DISTRIBUTION WIDTH 12.6 % (11.6-17.2)
[2017-12-04 07:33] LABS: ALBUMIN 3.5 GM/DL (3.4-5.0); AST (GOT) 43 U/L (15-37); BICARBONATE 32.6 MEQ/L (21.0-32.0); BLOOD UREA NITROGEN 3 MG/DL (7-18); CALCIUM 9.5 MG/DL (8.5-10.1); CHLORIDE 95 MEQ/L (98-107); CREATININE 0.62 MG/DL (0.60-1.30); GLUCOSE,RANDOM 69 MG/DL (74-106); SODIUM (NA) 134 MEQ/L (136-145)
[2017-12-04 07:37] LABS: ALKALINE PHOSPHATASE 79 U/L (45-117); ALT (GPT) 29 U/L (12-78); TOTAL BILIRUBIN ADULT 0.7 MG/DL (0.2-1.0); TOTAL PROTEIN 7.9 GM/DL (6.4-8.2)
[2017-12-04] MEDS: DOCUSATE SODIUM 50 MG/SENNA 8.6 MG TAB PO SCH ×2 (08:59→21:07)
[2017-12-04] MEDS: PANTOPRAZOLE SOD 40 MG DELAYED RELEASE TAB PO SCH (08:59)
[2017-12-04] MEDS: SODIUM CHLORIDE 0.9% FLUSH 10 ML FLUSH IV FLUSH SCH ×2 (09:00→21:12)
--- NOTE | 2017-12-04 09:12 | HHI.FPPN ---
Subjective Remarks Patient continues to complain of pain. He tried a little bit of a clear diet yesterday, and wants to eat, however it causes increased pain. He denies fever or chills. He denies chest pain, shortness of breath. (Robinson Fabian MD, R3) Objective Vitals Vital Signs Date Time Temp Pulse Resp B/P (MAP) Pulse Ox O2 Delivery O2 Flow Rate FiO2 12/04/17 08:28 97 12/04/17 07:38 95.6 108 18 144/94 (111) 92 12/04/17 04:15 98.9 111 19 134/88 (103) 92 12/04/17 00:20 99.2 123 19 138/84 (102) 94 12/03/17 20:20 96.9 109 18 146/95 (112) 95 12/03/17 19:46 95 12/03/17 15:43 98.7 101 18 137/94 (108) 95 12/03/17 10:50 97.0 106 18 143/92 (109) 94 I/O 12/03/17 12/03/17 12/03/17 12/04/17 12/04/17 12/04/17 07:00 15:00 23:00 07:00 15:00 23:00 Intake Total 0 ml 3797 ml 360 ml 360 ml Output Total 300 ml Balance 0 ml 3797 ml 60 ml 360 ml Intake Oral 0 ml 850 ml 360 ml 360 ml IV Total 2947 ml Output Urine Total 300 ml # Voids 1 3 1 1 # Bowel Movements 0 0 0 (Robinson Fabian MD, R3) Result Diagram: 12/04/17 0635 12/04/17 0635 Imaging Last Impressions Abdomen/Pelvis CT 12/03/17 0000 Signed Impressions: Service Date/Time: Sunday, December 03, 2017 14:59 - CONCLUSION: 1. Fluid and mild inflammatory changes around the pancreas characteristic of acute pancreatitis. There is no pancreatic necrosis or acute complicating factors. 2. There are small bilateral pleural effusions, left larger than right, and there is a small volume of free fluid within the abdomen and pelvis. 3. Cholelithiasis. However, there is no bile duct dilatation and no calcified stones are seen within the common bile duct. 4. Hepatic steatosis. Jeremy Reyes MD Chest X-Ray 12/02/17 0000 Signed Impressions: Service Date/Time: Saturday, December 02, 2017 10:21 - CONCLUSION: No acute disease. Andreas Dinero MD FACR Objective Remarks GENERAL: This is a thin and unkempt middle aged man lying in bed with mild abdominal guarding. No acute distress. SKIN: Cool and dry. HEAD: Atraumatic. Normocephalic. EYES: Extraocular motions intact. No scleral icterus. No injection or drainage. ENT: Nose without bleeding or drainage. Poor dentition with mainly missing teeth and others look like they need to be all pulled. NECK: Trachea midline. No JVD or lymphadenopathy. Supple, nontender, no meningeal signs. CARDIOVASCULAR: Regular rate, (perhaps slightly tachycardic), and rhythm without murmurs, gallops, or rubs. RESPIRATORY: Clear to auscultation. Breath sounds equal bilaterally. No wheezes , rales, or rhonchi. GASTROINTESTINAL: Abdomen soft, moderately TTP, nondistended. No hepato- splenomegaly, or palpable masses. Mild guarding. MUSCULOSKELETAL: Extremities without clubbing, cyanosis, or edema. No joint tenderness, effusion, or edema noted. No calf tenderness. NEUROLOGICAL: Awake and alert. Cranial nerves II through XII intact. Motor and sensory grossly within normal limits. Five out of 5 muscle strength in all muscle groups. Normal speech. (Robinson Fabian MD, R3) A/P Assessment and Plan 52YO male w/PMHx headaches, asthma and EtOH abuse presents with pancreatitis Discharge Planning Pending clinical improvement PT recs home with no PT; may need single point cane vs no AD (Robinson Fabian MD, R3) Attending Attestation Patient seen and examined. Case reviewed and discussed with the resident team. Agree with plan of care as discussed with me and documented in the resident note. stable and without ominous worsening (Daria Jaquez MD) Problem List: (1) Acute pancreatitis ICD Codes: K85.90 - Acute pancreatitis without necrosis or infection, unspecified Status: Acute Plan: CT imaging from 12/03 reviewed- no necrosis or pseudocyst. -Allow liquids if thirsty -Morphine 2mg IV pain 6-10 -Morphine 4mg IV breakthru -norco 5 mg po q 6h as his pain meds iv wear off quickly, can adjust as needed -Zofran 4mg IV q6h nausea -Tylenol 650mg q6h fever -LR IVF @ 200ml/hr -Protonix 40mg daily -Daily labs (2) ETOH abuse ICD Codes: F10.10 - Alcohol abuse, uncomplicated Status: Chronic Plan: Pt with chronic EtOH use (drinks 1-3 beers 3-4x/week) counselled him on quitting and that he could get more and more problems if he continues alcohol -Pt will think about possible placement in EtOH rehab on [place] [facility] (3) Elevated AST (SGOT) ICD Codes: R74.0 - Nonspecific elevation of levels of transaminase and lactic acid dehydrogenase [LDH] Plan: 2/2 EtOH use improved (4) Thrombocytopenia ICD Codes: D69.6 - Thrombocytopenia, unspecified Plan: PLTs 115 on admit; will follow daily CBC. probably from alcohol careful with heparin (5) Asthma ICD Codes: J45.909 - Unspecified asthma, uncomplicated Status: Chronic Plan: Pt indicating he is SOB on admit and takes no asthma meds; afebrile, RR 16, desaturated to 79% on RA on admit; comfortable and satting 99% on 2LNC -Albuterol nebs q4h scheduled for now (6) FEN/GI/PPx Status: Acute Plan: Fluids: as above Electrolytes: Monitor and replete as needed Nutrition:advance diet as requested by pt to liquids GI: Protonix as above PPx: normal renal function; Lovenox 40mg subcu daily Bowel regimen on opioid pain meds PT to assess (Robinson Fabian MD, R3) Problem Qualifiers (1) Acute pancreatitis: Qualified Codes: K85.20 - Alcohol induced acute pancreatitis without necrosis or infection Robinson Fabian MD, R3 Dec 04, 2017 09:11 Daria Jaquez MD Dec 05, 2017 10:14
[2017-12-04] MEDS: ENOXAPARIN SODIUM 40 MG/0.4 ML SYRINGE SQ SCH (11:00)
[2017-12-04] MEDS: MORPHINE SULFATE 2 MG/ML INJ IV PUSH PRN (14:08)
[2017-12-05 01:49] VITALS: BP 126/73; PULSE 80; RESP 16; TEMP 97.7; O2SAT 98
[2017-12-05] MEDS: LACTATED RINGER'S 1000 ML INJ 1,000 ML IV SCH (03:02)
[2017-12-05] MEDS: RESP: ALBUTEROL 2.5 MG/3 ML NEB (SCH) NEB (03:55)
[2017-12-05 05:05] VITALS: O2SAT 100
[2017-12-05] MEDS: ACETAMINOPHEN/HYDROcodone 325 MG/5 MG TAB PO SCH (05:53)
[2017-12-05 06:41] VITALS: BP 148/77; PULSE 104; RESP 18; TEMP 98.5; O2SAT 95
[2017-12-05 06:57] LABS: AUTOMATED NEUTROPHIL # 2.7 TH/MM3 (1.8-7.7); BASOPHIL % 0.2 % (0.0-2.0); EOSINOPHIL # 0.1 TH/MM3 (0-0.4); EOSINOPHIL % 1.4 % (0.0-4.0); HEMATOCRIT 37.4 % (39.0-51.0); HEMOGLOBIN 12.6 GM/DL (13.0-17.0); LYMPH % 16.6 % (9.0-44.0); LYMPHOCYTE # 0.6 TH/MM3 (1.0-4.8); MEAN CELL VOLUME 94.9 FL (80.0-100.0); MEAN CORPUSCULAR HGB CONC 33.7 % (32.0-36.0); MEAN PLATELET VOLUME 7.8 FL (7.0-11.0); MONO % 10.8 % (0.0-8.0); MONOCYTE # 0.4 TH/MM3 (0-0.9); PLATELET COUNT 131 TH/MM3 (150-450); RED BLOOD COUNT 3.94 MIL/MM3 (4.50-5.90); RED CELL DISTRIBUTION WIDTH 12.5 % (11.6-17.2); WHITE BLOOD COUNT 3.8 TH/MM3 (4.0-11.0)
[2017-12-05 07:02] LABS: BICARBONATE 30.8 MEQ/L (21.0-32.0); CALCIUM 9.5 MG/DL (8.5-10.1); CREATININE 0.63 MG/DL (0.60-1.30)
[2017-12-05 07:26] VITALS: BP 151/92; PULSE 123; RESP 19; TEMP 98.9; O2SAT 96
[2017-12-05] MEDS ORDERED: POTASSIUM CHLORIDE 20 MEQ CONTROLLED RELEASE TAB PO ONE (07:30)
--- NOTE | 2017-12-05 08:34 | HHI.FPPN ---
Addendum to progress note ADDENDUM Reason for addendum: Additonal documentation Additional information AMA note Arrived to the floor at 0800 and the nursing reports that the patient had just left the floor AGAINST MEDICAL ADVICE. Per nursing, the patient was tolerating a diet and walking yesterday. Per nursing, He did not provide a reason for why he was leaving. He left rapidly and there was no time to see the patient or ask questions. (Robinson Fabian MD, R3) Reason for addendum: Additonal documentation Additional information Unfortunately, leaving AMA severs the Pt relationship and we will not accept him back on our service (Daria Jaquez MD) Robinson Fabian MD, R3 Dec 05, 2017 08:34 Daria Jaquez MD Dec 05, 2017 10:16
--- NOTE | 2017-12-06 14:57 | PQ ---
Physician Query Response Document PATIENT: LESLI DEMARCO : 1965 ADMIT DATE: 12/02/2017 9:29 AM DISCH DATE: 12/05/2017 7:51 AM RESPONDING PROVIDER #: Arjun QUERY TEXT: Asthma Specificity and Type Asthma with (acute) exacerbation in setting of homeless patient w/ SOB and desaturation 79% treated w ith Albuterol nebs q4h and O2 2L NC Other explanation of clinical findings. Unable to determine (no explanation for clinical findings). The patient's Clinical Indicators include: The medical record reflects the following clinical findings, treatment, and risk factors. * Clinical Indicators SOB, desaturated to 79% on RA on admit * Risk Factors Asthma - takes no asthma medications, homeless status * Treatment Albuterol nebs q4h scheduled for now, O2 2L NC Please clarify and document your clinical opinion in the progress notes and discharge summary includi ng the definitive and/or presumptive diagnosis (suspected or probable), related to the above clinical findings. Please include clinical findings supporting your diagnosis. Thank you, Kasandra Baugh CDS: Kasandra Baugh Contact number: [phone] Patient Unit: [id number] Room: 1629 Query created by: Kasandra Baugh on 12/04/2017 4:19 PM RESPONSE TEXT: Mr Demarco does have COPD and asthma and was treated for this. He is homeless and left against medical advice Electronically signed by: Daria Jaquez MD 12/06/2017 2:53 PM
--- NOTE | 2017-12-09 09:55 | HHI.FPPN ---
Addendum to progress note ADDENDUM Reason for addendum: Additonal documentation Additional information Mr Range was noted to desaturate to 79% O2 sat on admission with a hx of asthma. Original documentation did not reflect that pt likely had an asthma exacerbation on admission in addition to acute pancreatitis. His asthma responded well to 2L NC supplemental O2 as well as albuterol nebs q3h. Pls reflect in the record that the pt had an acute asthma exacerbation at time of admission. Alfredo Mccullough MD R1 Dec 09, 2017 09:55
--- NOTE | 2017-12-10 14:51 | HHI.DS ---
Discharge Summary Admission Date Dec 02, 2017 at 09:29 Discharge Date: Dec 05, 2017 Admitting Diagnosis acute pancreatitis, intractable abdominal pain (1) Acute pancreatitis Diagnosis: Principal Plan: CT imaging from 12/03 reviewed- no necrosis or pseudocyst. -Allow liquids if thirsty -Morphine 2mg IV pain 6-10 -Morphine 4mg IV breakthru -norco 5 mg po q 6h as his pain meds iv wear off quickly, can adjust as needed -Zofran 4mg IV q6h nausea -Tylenol 650mg q6h fever -LR IVF @ 200ml/hr -Protonix 40mg daily -Daily labs ICD Codes: K85.90 - Acute pancreatitis without necrosis or infection, unspecified Status: Acute (2) ETOH abuse Diagnosis: Secondary Plan: Pt with chronic EtOH use (drinks 1-3 beers 3-4x/week) counselled him on quitting and that he could get more and more problems if he continues alcohol -Pt will think about possible placement in EtOH rehab on DC CIWA ICD Codes: F10.10 - Alcohol abuse, uncomplicated Status: Chronic (3) Elevated AST (SGOT) Diagnosis: Secondary Plan: 11/08 EtOH use improved ICD Codes: R74.0 - Nonspecific elevation of levels of transaminase and lactic acid dehydrogenase [LDH] (4) Thrombocytopenia Diagnosis: Secondary Plan: PLTs 115 on admit; will follow daily CBC. probably from alcohol careful with heparin ICD Codes: D69.6 - Thrombocytopenia, unspecified (5) Asthma Diagnosis: Secondary Plan: Pt indicating he is SOB on admit and takes no asthma meds; afebrile, RR 16, desaturated to 79% on RA on admit; comfortable and satting 99% on 2LNC -Albuterol nebs q4h scheduled for now ICD Codes: J45.909 - Unspecified asthma, uncomplicated Status: Chronic (6) Asthma exacerbation Diagnosis: Secondary ICD Codes: J45.901 - Unspecified asthma with (acute) exacerbation (7) FEN/GI/PPx Diagnosis: Secondary Plan: Fluids: as above Electrolytes: Monitor and replete as needed Nutrition:advance diet as requested by pt to liquids GI: Protonix as above PPx: normal renal function; Lovenox 40mg subcu daily Bowel regimen on opioid pain meds PT to assess Status: Acute Consultants none Procedures none Brief History Mr Demarco is a 52 YO male with PMHx of headaches, asthma and EtOH abuse who presented with acute abdominal pain with no V/D. Pt states problem began in the night w/abdom pain 10/10 on pain scale. Pain is like a screw being bored thru him; just in his stomach. There is no radiation. States he had a similar problem about 3 years ago. Also states he is a little short of breath but takes no meds for his asthma. He has been hospitalized at [facility] before numerous times, but not since Jul 2016. Pt is homeless and drinks 1-3 beers of large size 3-4 times per week. His last drink was the night before admission. He also stated he has not eaten and was not hungry. Denies having EtOH withdrawal seizure before but has gotten the shakes when withdrawing. Denies CP, DVT pain. Overnight, he would get some relief with his pain meds but per his nurse they would not last very long before he would be in pain again. His labs improved except his lipase is more elevated now. Imaging Last Impressions Abdomen/Pelvis CT 12/03/17 0000 Signed Impressions: Service Date/Time: Sunday, December 03, 2017 14:59 - CONCLUSION: 1. Fluid and mild inflammatory changes around the pancreas characteristic of acute pancreatitis. There is no pancreatic necrosis or acute complicating factors. 2. There are small bilateral pleural effusions, left larger than right, and there is a small volume of free fluid within the abdomen and pelvis. 3. Cholelithiasis. However, there is no bile duct dilatation and no calcified stones are seen within the common bile duct. 4. Hepatic steatosis. Jeremy Reyes MD Chest X-Ray 12/02/17 0000 Signed Impressions: Service Date/Time: Saturday, December 02, 2017 10:21 - CONCLUSION: No acute disease. Andreas Dinero MD FACR PE at Discharge GENERAL: This is a thin and unkempt middle aged man lying in bed with mild abdominal guarding. No acute distress. SKIN: Cool and dry. HEAD: Atraumatic. Normocephalic. EYES: Extraocular motions intact. No scleral icterus. No injection or drainage. ENT: Nose without bleeding or drainage. Poor dentition with mainly missing teeth and others look like they need to be all pulled. NECK: Trachea midline. No JVD or lymphadenopathy. Supple, nontender, no meningeal signs. CARDIOVASCULAR: Regular rate, (perhaps slightly tachycardic), and rhythm without murmurs, gallops, or rubs. RESPIRATORY: Clear to auscultation. Breath sounds equal bilaterally. No wheezes , rales, or rhonchi. GASTROINTESTINAL: Abdomen soft, moderately TTP, nondistended. No hepato- splenomegaly, or palpable masses. Mild guarding. MUSCULOSKELETAL: Extremities without clubbing, cyanosis, or edema. No joint tenderness, effusion, or edema noted. No calf tenderness. NEUROLOGICAL: Awake and alert. Cranial nerves II through XII intact. Motor and sensory grossly within normal limits. Five out of 5 muscle strength in all muscle groups. Normal speech. Hospital Course Patient was initially made nothing by mouth. The next day he wanted to advance his diet. His pain was controlled with morphine. The patient remained on IV fluids at 200 mL's per hour. Prior to seeing the patient during his third hospital day, the patient left AMA. His labs remained benign during his hospitalization. His imaging did not suggest severe pancreatitis with complications. See additional documentation regarding leaving AGAINST MEDICAL ADVICE. Pt Condition on Discharge: Stable Discharge Instructions Additional Information Patient left AGAINST MEDICAL ADVICE. No information to be provided regarding diet, activity, follow-up etc. Unfortunately, leaving AMA severs the Pt relationship and we will not accept him back on our service Robinson Fabian MD, R3 Dec 10, 2017 14:51
== END 2017-12-05 07:51 | disposition left against medical advice (07) | DRG 439 ==
LOC: NEPE 07:51 → OBSVTOIN 09:29 → NEDA 09:29 → N06B 11:18
PROVIDERS: ADMIT Family Medicine; ATTEND Family Medicine
DX: K85.20 Alcohol induced acute pancreatitis without necrosis or infection (principal); J45.901 Unspecified asthma with (acute) exacerbation; D69.59 Other secondary thrombocytopenia; F20.9 Schizophrenia, unspecified; I10 Essential (primary) hypertension; M19.90 Unspecified osteoarthritis, unspecified site; F10.10 Alcohol abuse, uncomplicated; F31.9 Bipolar disorder, unspecified; F41.9 Anxiety disorder, unspecified; J44.9 Chronic obstructive pulmonary disease, unspecified; Y90.6 Blood alcohol level of 120-199 mg/100 ml; Z23 Encounter for immunization; Z59.0 Homelessness; Z86.73 Personal history of transient ischemic attack (TIA), and cerebral infarction without residual deficits; Z91.14 Patient's other noncompliance with medication regimen
CPT/HCPCS: 71045; 74177; 80048; 80053; 80307; 81001; 83690; 84484; 85025; 85610; 90471; 90472; 90686; 90732; 93005; 94150; 94640; 94664; 99285; C9113; G0008; G0009; J1650; J2060; J2270; J2405; J7030; J7120; J7613; Q2038; Q9967

== ENCOUNTER 2018-02-20 13:06 | Emergency (ER) | END 2018-02-21 06:52 | disposition home or self-care (01) | DX: F10.129 Alcohol abuse with intoxication, unspecified (principal); K85.20 Alcohol induced acute pancreatitis without necrosis or infection; Y90.6 Blood alcohol level of 120-199 mg/100 ml; Z59.0 Homelessness | CPT/HCPCS: 71045; 80053; 80307; 82550; 83605; 83690; 85025; 93005; 96361; 96374; 99285; J7030 ==

== ENCOUNTER 2018-03-11 03:52 | Emergency (ER) | payer MEDICARE, OTHER ==
[~2018-03-11] VITALS: Ht 175.3 cm; Wt 73.5 kg
[2018-03-11 04:07] VITALS: BP 143/88; PULSE 73; RESP 18; TEMP 98.5; O2SAT 99
[2018-03-11] MEDS ORDERED: ACETAMINOPHEN 325 MG TAB PO ONE (04:30)
[2018-03-11] MEDS ORDERED: SODIUM CHLOR 0.9% 1000 ML INJ 1,000 ML IV ONE (04:30)
--- NOTE | 2018-03-11 04:38 | PD ---
HPI Chief Complaint: Fall Time Seen by Provider: 04:15 Travel History International Travel<30 days: No Contact w/Intl Traveler<30days: No Traveled to known affect area: No History of Present Illness HPI The patient is a 52-year-old -[place] male who presents to the emergency department after possible fall. The patient states he was resting against the wall outside of a store when he fell forward. The patient states he has "burning "pain all over the body. He does admit to a history of alcohol use, but states he does not drink alcohol 2-3 days. He denies any specific complaints simply states that the entire body is "burning ". He also states he has pain when ambulating, but is able to ambulate. He denies any headache, neck pain, chest pain, shortness breath, nausea, vomiting, or abdominal pain. Symptoms are moderate. PFSH Past Medical History Hx Anticoagulant Therapy: No Arthritis: Yes Asthma: Yes Autoimmune Disease: No Blood Disorders: No Bipolar Disorder: Yes Anxiety: Yes Depression: Yes Heart Rhythm Problems: No Cancer: No Cardiovascular Problems: Yes (high blood pressure) High Cholesterol: No Chemotherapy: No Chest Pain: No Congestive Heart Failure: No COPD: No Cerebrovascular Accident: No Diabetes: No Diminished Hearing: No Endocrine: No Gastrointestinal Disorders: Yes GERD: Yes Glaucoma: No Genitourinary: No Headaches: Yes Hepatitis: No Hiatal Hernia: No Hypertension: Yes Immune Disorder: No Kidney Stones: No Musculoskeletal: No Neurologic: Yes Psychiatric: Yes (paranoid schizophrenia) Reproductive: No Respiratory: No Immunizations Current: Yes Migraines: No Myocardial Infarction: No Radiation Therapy: No Renal Failure: No Schizophrenia: Yes (NOT TAKING MEDS) Seizures: No Sleep Apnea: No Thyroid Disease: No Ulcer: No Tetanus Vaccination: < 5 Years Influenza Vaccination: Yes Past Surgical History Abdominal Surgery: No AICD: No Arteriovenous Shunt: No Cardiac Surgery: No Ear Surgery: No Endocrine Surgery: No Eye Surgery: No Genitourinary Surgery: No Gynecologic Surgery: No Joint Replacement: No Neurologic Surgery: No Oral Surgery: No Pacemaker: No Thoracic Surgery: No Other Surgery: No Social History Alcohol Use: Yes (used to drink daily) Tobacco Use: No Substance Use: No Allergies-Medications (Allergen,Severity, Reaction): Coded Allergies: No Known Allergies (Verified Allergy, Unknown, 03/11/18) Reported Meds & Prescriptions Reported Meds & Active Scripts Active No Active Prescriptions or Reported Medications Review of Systems Except as stated in HPI: all other systems reviewed are Neg HENT: No: Headaches, Neck Stiffness, Neck Pain Cardiovascular: No: Chest Pain or Discomfort Respiratory: No: Shortness of Breath Gastrointestinal: No: Nausea, Vomiting, Abdominal Pain Musculoskeletal: Positive: Weakness, Pain Neurologic: Positive: Other (Burning sensation all over), No: Focal Abnormalities, Paresthesia, Sensory Disturbance Psychiatric: Positive: Substance Abuse (History of alcohol abuse) Physical Exam Narrative GENERAL: Awake, alert, nontoxic-appearing 52-year-old male who appears his stated age and is in no acute respiratory distress. Cachectic thin build. SKIN: Focused skin assessment warm/dry. HEAD: Atraumatic. Normocephalic. EYES: No injection or drainage. ENT: No nasal bleeding or discharge. Mucous membranes pink and moist. NECK: Trachea midline. No JVD. CARDIOVASCULAR: Regular rate and rhythm. No murmur appreciated. RESPIRATORY: No accessory muscle use. Clear to auscultation. Breath sounds equal bilaterally. GASTROINTESTINAL: Abdomen soft, non-tender, nondistended. No rebound tenderness. MUSCULOSKELETAL: No obvious deformities. No clubbing. No cyanosis. No edema. Full use of the upper and lower extremities. Soft tissue tumor noted over the lateral aspect left elbow. Slightly tremulous. Back: No tenderness over the thoracic or lumbar vertebrae. NEUROLOGICAL: Awake and alert. No obvious cranial nerve deficits. Motor grossly within normal limits. Normal speech. Nonfocal. PSYCHIATRIC: Appropriate mood and affect; insight and judgment normal. Data Data Last Documented VS Vital Signs Date Time Temp Pulse Resp B/P (MAP) Pulse Ox O2 Delivery O2 Flow Rate FiO2 03/11/18 07:17 88 20 138/76 (96) 96 03/11/18 04:07 98.5 Orders Orders Basic Metabolic Panel (Bmp) (03/11/18 04:28) Alcohol (Ethanol) (03/11/18 04:28) Sodium Chlor 0.9% 1000 Ml Inj (Ns 1000 M (03/11/18 04:30) Acetaminophen (Tylenol) (03/11/18 04:30) Magnesium (Mg) (03/11/18 04:28) Chlordiazepoxide (Librium) (03/11/18 04:45) Ed Discharge Order (03/11/18 05:56) Labs Laboratory Tests Test 03/11/18 04:45 Blood Urea Nitrogen 9 MG/DL Creatinine 0.78 MG/DL Random Glucose 80 MG/DL Calcium Level 9.6 MG/DL Magnesium Level 1.6 MG/DL Sodium Level 134 MEQ/L Potassium Level 4.4 MEQ/L Chloride Level 97 MEQ/L Carbon Dioxide Level 20.8 MEQ/L Anion Gap 16 MEQ/L Estimat Glomerular Filtration Rate 127 ML/MIN Ethyl Alcohol Level LESS THAN 3 MG/DL [facility] Medical Decision Making Medical Screen Exam Complete: Yes Emergency Medical Condition: Yes Medical Record Reviewed: Yes Interpretation(s) Laboratory Tests Test 03/11/18 04:45 Blood Urea Nitrogen 9 MG/DL Creatinine 0.78 MG/DL Random Glucose 80 MG/DL Calcium Level 9.6 MG/DL Magnesium Level 1.6 MG/DL Sodium Level 134 MEQ/L Potassium Level 4.4 MEQ/L Chloride Level 97 MEQ/L Carbon Dioxide Level 20.8 MEQ/L Anion Gap 16 MEQ/L Estimat Glomerular Filtration Rate 127 ML/MIN Ethyl Alcohol Level LESS THAN 3 MG/DL Differential Diagnosis Differential diagnosis includes mechanical fall, hypokalemia, hyperkalemia, hypocalcemia, hypomagnesemia, dehydration, alcohol withdrawal. Narrative Course IV was established, labs are drawn and sent, and the patient was placed on cardiac telemetry monitoring and continuous pulse oximetry monitoring. The patient has not drank in 2-3 days and was slightly tremulous, however, was not tachycardic. The patient possibly could have early alcohol withdrawal, therefore, was administered Librium 25 mg orally. Labs are unremarkable. Patient is medically clear for outpatient follow-up. Diagnosis Primary Impression: Fall Qualified Codes: W19.XXXA - Unspecified fall, initial encounter Patient Instructions: General Instructions Additional Instructions: Follow-up with your primary physician. Return if symptoms worsen or progress. Med/Other Pt SpecificInfo: No Change to Meds Scripts No Active Prescriptions or Reported Meds Disposition: 01 DISCHARGE HOME Condition: Stable Davon Victor MD Mar 11, 2018 04:38
[2018-03-11 05:49] LABS: BICARBONATE 20.8 MEQ/L (21.0-32.0); BLOOD UREA NITROGEN 9 MG/DL (7-18); CALCIUM 9.6 MG/DL (8.5-10.1); CHLORIDE 97 MEQ/L (98-107); CREATININE 0.78 MG/DL (0.60-1.30); GLOMERULAR FILTRATION RATE 127 ML/MIN (>89); GLUCOSE,RANDOM 80 MG/DL (74-106); MAGNESIUM 1.6 MG/DL (1.5-2.5); SODIUM (NA) 134 MEQ/L (136-145)
[2018-03-11 05:52] VITALS: RESP 20
[2018-03-11 07:17] VITALS: BP 138/76
== END 2018-03-11 07:31 | disposition home or self-care (01) ==
LOC: NEPE 03:52
DX: R52 Pain, unspecified (principal); R20.8 Other disturbances of skin sensation; R53.1 Weakness; W19.XXXA Unspecified fall, initial encounter; R64 Cachexia; F31.9 Bipolar disorder, unspecified; I10 Essential (primary) hypertension; F20.0 Paranoid schizophrenia; M19.90 Unspecified osteoarthritis, unspecified site
CPT/HCPCS: 80048; 80307; 83735; 96360; 99284; J7030

== ENCOUNTER 2018-05-07 03:26 | Observation (INO) ==
[2018-05-07] MEDS ORDERED: Sodium Chlor 0.9% Inj 500 ML IV.SIG ONE (03:53)
--- NOTE | 2018-05-07 04:02 | ED ---
HPI General Chief complaint: Abdominal Pain Stated complaint: pt states he is sick Time Seen by Provider: 05/07/18 03:34 Source: patient Limitations: other (History seems to be limited by baseline mental health problems.) History of Present Illness HPI narrative: The patient is a 52 year old male who presents to the [facility] emergency department with a history of reportedly feeling ill since 2 AM. When the patient is asked to clarify what he means by feeling ill/sick he reports that he was walking out of a convenience store at 2 AM when he began to have difficulty breathing. He denies having a productive cough, however he has had some congestion in his throat with frequent throat clearing. He is unsure when that started. The patient additionally reports having chest pain on review of systems. He reports having chest pain currently. He is unable to explain the character of the pain of the severity of the pain. He reports that it is in the front and middle of his chest, and also in his upper back. He is unsure whether he has had any fevers. He reports that he is homeless. He denies having any nausea or vomiting. He reports that he has had diarrhea. When asked when the diarrhea began, he reports "all the while." When asked how many times he has had diarrhea in the last 24 hours he reports having it again "all the while." On review of systems otherwise, he denies having any neck pain , abdominal pain, urinary symptoms, or neurologic symptoms. The patient arrives oriented to person, place, and time. Related Data Home Medications Medication Instructions Recorded Confirmed No Known Home Medications 04/29/18 05/07/18 Allergies Allergy/AdvReac Type Severity Reaction Status Date / Time No Known Allergies Allergy Verified 05/07/18 03:28 Review of Systems ROS Unobtainable All other systems reviewed negative except as stated in HPI PMFSH Social History Social History Substance History: Active Abuse Second Hand Smoke Exposure: No Smoking Status: Former smoker Tobacco Type: Cigarettes How Often Do You Have a Drink Containing Alcohol: 4 or more times a week Recent Travel in [facility] within the Last 8 Weeks: No Recent Out of Country Travel within the Last 8 Weeks: No Substance Abuse Detail Alcohol: Substance Use Type Other:: 2-3 beers per day Substance Use Status: Active Immunization History Tetanus Immunization: Unsure Hx Influenza Vaccine This Season: No Exam Const General: cooperative, no acute distress and well developed Nutritional Appearance: well nourished Orientation: alert, awake and oriented x3 HENMT Head: normocephalic and atraumatic Nose: no nasal discharge and no epistaxis Mouth: moist mucous membranes Throat: posterior oropharynx normal and uvula midline Eyes Sclera: normal sclerae Pupils: PERRL Neck Neck: no meningeal signs, trachea midline and no JVD Resp Effort & Inspection: no use of accessory muscles Auscultation: clear to auscultation bilaterally Cardio Rate: regular rate Rhythm: regular rhythm Heart Sounds: no murmurs GI Inspection: non-distended Palpation: soft, no hepatosplenomegaly and nontender Auscultation: normal bowel sounds Back/Spine/Pelvis Back: no CVA tenderness Skin General: dry skin (warm) Neuro General: alert, awake and oriented x3 Cranial Nerves: other (No facial asymmetry.) Speech: speech normal Motor: no movement abnormalities noted Sensory Exam: no sensory deficits noted Extrem General: normal to inspection (2+ pulses in all 4 extremities. No calf tenderness on palpation.), no clubbing, no cyanosis and no edema Psych Mood: congruent mood Affect: blunted Attitude: cooperative Judgment: limited Course Initial Documented Vital Signs Temperature 98.6 F 05/07/18 03:28 Pulse Rate 88 05/07/18 03:28 Respiratory Rate 17 05/07/18 03:28 Blood Pressure 114/70 05/07/18 03:28 Pulse Oximetry 98 05/07/18 03:28 Last Documented Vital Signs Temperature 98.6 F 05/07/18 03:28 Pulse Rate 76 05/07/18 03:47 Respiratory Rate 18 05/07/18 03:47 Blood Pressure 115/85 05/07/18 03:47 Pulse Oximetry 98 05/07/18 03:47 Medical Decision Making MDM Narrative Medical decision making narrative: During the course of the patient's emergency department visit, the patient's history, examination, and differential diagnosis were reviewed with the patient. The patient was placed on a monitoring coordinator with oximetry and frequent blood pressure monitoring. The patient had IV access obtained and blood work sent for analysis. Diagnostic evaluation was started regarding the patient's reports of shortness of breath and chest pain. The patient was initially provided normal saline at 500 mL bolus 1, aspirin 324 mg p.o. 1. Laboratory studies are remarkable for a white count of 2.1, and the patient with prior history of pancytopenia, platelets are 210, lymphocytes are 49, hemoglobin 10.6, neutrophils 0.6, PT 11.4, PTT 27.3, chemistry is remarkable for troponin I of less than 0.02, CPK 354 with a normal MB percent, calcium 8.2 , BUN 6, BNP within normal limits, AST is 70, albumin 3.2. Chest x-ray shows no acute abnormality. The patient's results were discussed with the patient, including the plan of care. I explained that further testing and/ or monitoring is indicated based on the patient's history, examination, and/ or laboratory findings. Therefore, I recommended admission for additional evaluation. The patient expressed understanding and was agreeable with this plan. The patient was admitted to the hospital in stable condition and sent to a bed under the care of the [facility]. Medical Records Medical records reviewed: Yes I reviewed the patient's medical records. Lab Data Result diagrams: 05/07/18 04:49 05/07/18 04:30 Lab Results 05/07/18 05/07/18 05/07/18 Range/Units 04:30 04:30 04:49 WBC 2.1 L (4.0-11.0) th/mm3 RBC 3.36 L (4.50-5.90) mil/mm3 Hgb 10.6 L (13.0-17.0) gm/dL Hct 32.4 L (39.0-51.0) % MCV 96.4 (80.0-100.0) fL MCH 31.6 (27.0-34.0) pg MCHC 32.8 (32.0-36.0) % RDW 12.8 (11.6-17.2) % Plt Count 210 D (150-450) th/mm3 MPV 7.0 (7.0-11.0) fL Prelim Diff (Auto) Manual diff required WBC Differential Manual diff final Seg Neuts % (Manual) 29 (16-70) % Lymphocytes % (Manual) 49 H (9-44) % Monocytes % (Manual) 16 H (0-8) % Eosinophils % (Manual) 5 H (0-4) % Basophils % (Manual) 1 (0-2) % Abs Neuts (Manual) 0.6 L (1.8-7.7) th/mm3 Differential Comment . Platelet Estimate Normal (Normal) Platelet Morphology Normal (Normal) RBC Morphology Normal (Normal) PT (9.8-11.6) sec INR Ratio APTT (24.3-30.1) sec Sodium 143 (136-145) meq/L Potassium 4.3 (3.5-5.1) meq/L Chloride 107 (98-107) meq/L Carbon Dioxide 28.9 (21.0-32.0) meq/L Anion Gap 7 (5-15) meq/L BUN 6 L (7-18) mg/dL Creatinine 0.66 (0.60-1.30) mg/dL Estimated GFR Greater than 89 (>89) mL/min Random Glucose 80 (74-106) mg/dL Calcium 8.2 L (8.5-10.1) mg/dL Total Bilirubin 0.3 (0.2-1.0) mg/dL AST 70 H (15-37) U/L ALT 41 (12-78) U/L Alkaline Phosphatase 93 (45-117) U/L Total Creatine Kinase 354 H (39-308) U/L CK-MB (CK-2) 1.5 (0.5-3.6) ng/mL CK-MB (CK-2) % 0.4 (0.0-4.0) % Troponin I Less than 0.02 L (0.02-0.05) ng/mL B-Natriuretic Peptide 47 (0-100) pg/mL Total Protein 7.5 (6.4-8.2) g/dL Albumin 3.2 L (3.4-5.0) g/dL Lipase 89 (73-393) U/L 05/07/18 Range/Units 04:49 WBC (4.0-11.0) th/mm3 RBC (4.50-5.90) mil/mm3 Hgb (13.0-17.0) gm/dL Hct (39.0-51.0) % MCV (80.0-100.0) fL MCH (27.0-34.0) pg MCHC (32.0-36.0) % RDW (11.6-17.2) % Plt Count (150-450) th/mm3 MPV (7.0-11.0) fL Prelim Diff (Auto) WBC Differential Seg Neuts % (Manual) (16-70) % Lymphocytes % (Manual) (9-44) % Monocytes % (Manual) (0-8) % Eosinophils % (Manual) (0-4) % Basophils % (Manual) (0-2) % Abs Neuts (Manual) (1.8-7.7) th/mm3 Differential Comment Platelet Estimate (Normal) Platelet Morphology (Normal) RBC Morphology (Normal) PT 11.4 (9.8-11.6) sec INR 1.1 Ratio APTT 27.3 (24.3-30.1) sec Sodium (136-145) meq/L Potassium (3.5-5.1) meq/L Chloride (98-107) meq/L Carbon Dioxide (21.0-32.0) meq/L Anion Gap (5-15) meq/L BUN (7-18) mg/dL Creatinine (0.60-1.30) mg/dL Estimated GFR (>89) mL/min Random Glucose (74-106) mg/dL Calcium (8.5-10.1) mg/dL Total Bilirubin (0.2-1.0) mg/dL AST (15-37) U/L ALT (12-78) U/L Alkaline Phosphatase (45-117) U/L Total Creatine Kinase (39-308) U/L CK-MB (CK-2) (0.5-3.6) ng/mL CK-MB (CK-2) % (0.0-4.0) % Troponin I (0.02-0.05) ng/mL B-Natriuretic Peptide (0-100) pg/mL Total Protein (6.4-8.2) g/dL Albumin (3.4-5.0) g/dL Lipase (73-393) U/L Imaging Data Radiologist's impression: Chest X-Ray 05/07/18 03:52 CONCLUSION: No acute cardiopulmonary disease. Discharge Plan Discharge Disposition Patient Disposition: 30 Still Patient Discharge Details Diagnosis: Chest pain, rule out acute myocardial infarction Physicians Team ED Provider: Sandra Osborn Rxs /Orders / Referrals /Forms Prescriptions: No Action No Known Home Medications RF: 0 Discharge Interventions Interventions: Vital Signs Last Done: 05/07/18 03:47 Status ED Status: With Doctor
--- NOTE | 2018-05-07 04:54 | XR ---
EXAM DATE: 05/07/2018 4:44 AM EDT AGE/SEX: 52 years / Male INDICATIONS: Shortness of breath. CLINICAL DATA: This is the patient's initial encounter. Patient reports that signs and symptoms have been present for 1 day and indicates a pain score of 0/10. MEDICAL/SURGICAL HISTORY: Asthma. None. COMPARISON: [facility] [place] S[place], 04/29/2018. . FINDINGS: A single AP view of the chest demonstrates the lungs to be symmetrically aerated without evidence of mass, infiltrate or effusion. The cardiomediastinal contours are unremarkable. Osseous structures a re intact. CONCLUSION: No acute cardiopulmonary disease. Electronically signed by: Mateo Elliott MD 05/07/2018 4:53 AM EDT
[2018-05-07 05:05] LABS: Hematocrit 32.4 % (39.0-51.0); Hemoglobin 10.6 gm/dL (13.0-17.0); Mean Corpuscular HGB Conc 32.8 % (32.0-36.0); Mean Corpuscular Hemoglobin 31.6 pg (27.0-34.0); Mean Corpuscular Volume 96.4 fL (80.0-100.0); Platelet Count 210 th/mm3 (150-450); Red Blood Count 3.36 mil/mm3 (4.50-5.90); Red Cell Distribution Width 12.8 % (11.6-17.2); White Blood Count 2.1 th/mm3 (4.0-11.0)
[2018-05-07 05:18] LABS: Alanine Aminotransferase 41 U/L (12-78); Albumin 3.2 g/dL (3.4-5.0); Alkaline Phosphatase 93 U/L (45-117); Anion Gap 7 meq/L (5-15); Aspartate Aminotransferase 70 U/L (15-37); Blood Urea Nitrogen 6 mg/dL (7-18); Calcium 8.2 mg/dL (8.5-10.1); Carbon Dioxide 28.9 meq/L (21.0-32.0); Chloride 107 meq/L (98-107); Creatine Kinase 354 U/L (39-308); Glomerular Filtration Rate Greater Than 89 mL/min (>89); Glucose,Random 80 mg/dL (74-106); Lipase 89 U/L (73-393); Potassium 4.3 meq/L (3.5-5.1); Sodium 143 meq/L (136-145)
[2018-05-07 05:19] LABS: Total Protein 7.5 g/dL (6.4-8.2)
[2018-05-07 05:29] LABS: Activated Partial Thrombo Time 27.3 sec (24.3-30.1); INR 1.1 Ratio; Prothrombin Time 11.4 sec (9.8-11.6)
[2018-05-07 05:31] LABS: CKMB Percent 0.4 % (0.0-4.0); Creatine Kinase MB 1.5 ng/mL (0.5-3.6)
[2018-05-07 05:37] LABS: Eosinophils 5 % (0-4); Lymphocytes 49 % (9-44); Monocytes 16 % (0-8)
[2018-05-07 05:38] LABS: Platelet Estimate Normal (Normal); Platelet Morphology Normal (Normal); RBC Morphology Normal (Normal)
[2018-05-07 08:04] LABS: Creatine Kinase 276 U/L (39-308)
[2018-05-07] MEDS ORDERED: Haloperidol Inj 5 MG/ML Ampul IV.PUSH PRN (10:32)
--- NOTE | 2018-05-07 10:54 | P.HPCA ---
History of Present Illness Service: Chest pain center Primary Care Physician: UNKNOWN Patient has no outpatient follow-up either psychiatric or medical Chief Complaint: "Schizophrenia was bothering me" History of Present Illness: 52-year-old black male with multiple emergency room encounters in the past ( frequent flyer). He is currently slowly responsive but does interact. When asked why he came to the hospital he states that his schizophrenia was bothering him. His ability to provide history is severely impaired. Mini- Mental was carried out and as documented impairment but is difficult to determine whether this is short-term secondary to alcohol or drugs or long- term. He does state that when his schizophrenia gets upset that he gets sick but has difficulty explaining what sick means. Eventually we were able to understand that this means that he has pain in his back legs chest stomach that he currently rates it as 8 out of 10. When this happens it goes on for weeks at a time. He gets some relief by taking Tylenol. He states that he has not done drugs for a couple weeks but that he does drink as much beer a day as he can get hold off. He has been taking some over the counter medications and some prescriptions but unlikely that his prescriptions are from a physician. Seems unable to tell us what they are. He believes he last saw a psychiatrist about 2 years ago. He is unable to tell us where he was born or where he came from but apparently from the [place] area. He states that he got there by bus. The history provided to the emergency room physician is not repeated on our exam he does not talk about difficulty breathing chest pain or his cough. He does indicate that he is homeless has no place to stay her sleep. He has been arrested apparently at least several times in the past but it is unclear when or for what. Review of his past records indicate diagnosis of schizophrenia bipolar disorder anxiety depression COPD drug usage alcoholism pancreatitis - Diagnosis (1) Intoxication (2) Malingering (3) Chest pain, rule out acute myocardial infarction (4) Schizo affective schizophrenia Review of Systems This patient is very difficult to communicate with the review of systems seems to be meaningless basically he complains of everything either hurting or being sick PMFSH - History History Provided By: Patient (The patient has no meaningful understanding of his past medical history other than the fact that he has used drugs and drinks fairly heavily. He does understand that he has schizophrenia but there is no meaningful past history from the patient. Review of his hospital chart is most helpful) - Medical History Medical History: Medical History (Last Reviewed 05/07/18 @ 03:45 by Zack Johnson) Asthma Schizophrenia - Surgical History Surgical History: Surgical History (Last Reviewed 05/07/18 @ 03:45 by Zack Johnson) No history of previous surgery - Family History Family History: Family History (Last Reviewed 04/29/18 @ 04:54 by Deisy Bartholomew MD) Other Family history of acute myocardial infarction Family history of breast cancer Family history of cancer Family history of colon cancer Family history of diabetes mellitus Family history of hypertension - Tobacco History Second Hand Smoke Exposure: No Smoking Status: Former smoker Tobacco Type: Cigarettes - Alcohol History How Often Do You Have a Drink Containing Alcohol: 4 or more times a week - Substance Use History Substance History: Active Abuse - Substance Use Type Alcohol Type: 2-3 beers per day Status: Active - Travel History Recent Travel in the [place] Within the Last 8 Weeks: No Recent Travel Out of the Country Within the Last 8 Weeks: No - Immunization History Tetanus Immunization: Unsure Hx Influenza Vaccine This Season: No Medications and Allergies Active Medications: Active Medications Acetaminophen (Tylenol) 500 mg PO Q4H PRN PRN Reason: HEADACHE Flumazenil (Romazecon Inj) 0.2 mg IV.PUSH Q1M PRN PRN Reason: OVERSEDATION Haloperidol Lactate (Haldol Inj) 1 mg IV.PUSH Q15M PRN PRN Reason: for severe agitation Lorazepam (Ativan) 1 mg PO Q4H PRN PRN Reason: for CIWA 8-10 Lorazepam (Ativan) 2 mg PO Q2H PRN PRN Reason: for CIWA 11-14 Lorazepam (Ativan Inj) 2 mg IV.PUSH Q2H PRN PRN Reason: for CIWA 11-14 Lorazepam (Ativan Inj) 2 mg IV.PUSH Q15M PRN PRN Reason: for CIWA > 20 Lorazepam (Ativan Inj) 1 mg IV.PUSH Q4H PRN PRN Reason: for CIWA 8-10 Lorazepam (Ativan Inj) 2 mg IV.PUSH Q1H PRN PRN Reason: for CIWA 15-20 Nitroglycerin (Nitrostat Sl) 0.4 mg SL Q5M PRN PRN Reason: CHEST PAIN Ondansetron HCl (Zofran Odt) 4 mg PO Q6H PRN PRN Reason: NAUSEA Sodium Chloride (Ns Flush) 2 ml IV.FLUSH PRN PRN PRN Reason: FLUSH AFTER USING IV ACCESS Sodium Chloride (Ns Flush) 2 ml IV.FLUSH PRN PRN PRN Reason: FLUSH AFTER USING IV ACCESS Sodium Chloride (Ns Flush) 2 ml IV.FLUSH BID LAURA Last Admin: 05/07/18 08:02 Dose: 2 ml Allergies Allergy/AdvReac Type Severity Reaction Status Date / Time No Known Allergies Allergy Verified 05/07/18 03:28 Home Medications Medication Instructions Recorded Confirmed Type No Known Home Medications 04/29/18 05/07/18 History Exam Vital signs: Vital Signs 05/07/18 03:28 05/07/18 03:47 05/07/18 06:15 Temperature 98.6 F Pulse Rate 88 76 Respiratory Rate 17 18 Blood Pressure 114/70 115/85 Pulse Oximetry 98 98 96 05/07/18 06:42 05/07/18 07:21 Temperature Pulse Rate 66 74 Respiratory Rate 18 16 Blood Pressure 122/82 119/80 Pulse Oximetry 98 100 Narrative: Thin frail tremulous black male lying on right side somewhat difficult to arouse. Head is normocephalic atraumatic Eyes pupils are small (not quite pinpoint) and poorly responsive to light. Extraocular movements are intact sclera is muddy Nares are open with no apparent lesions Mouth mucous membranes are moist tongue is well papillated dentition severely deformed by caries hygiene very bad but no lesions are appreciated Neck is supple carotids are palpable with no bruits and there is no JVD. No nodes are appreciated. Chest breath sounds are diminished but intact bilaterally with no rales wheezes or rhonchi Cardiovascular PMI not displaced there is a regular rhythm with no gallops rubs or murmurs The abdomen is soft nontender no guarding or rebound. The liver appears to be firm but margin is difficult to palpate Extremities reveal a trace of edema but no clubbing or cyanosis. There is no palmar erythema. Psychiatric patient's Mini-Mental status is very poor, he seems to have little judgment or understanding Neurologic cranial nerves appear to be intact and he is able to move all 4 extremities. He demonstrates a diffuse tremor but no asterixis Results 05/07/18 04:49 05/07/18 04:30 Cardiac Enzymes 05/07/1818 05/07/18 Range/Units 04:30 04:30 07:10 AST 70 H (15-37) U/L CK-MB (CK-2) 1.5 (0.5-3.6) ng/mL Troponin I Less than 0.02 L Less than 0.02 L (0.02-0.05) ng/mL B-Natriuretic Peptide 47 (0-100) pg/mL Coagulation 05/07/18 05/07/18 Range/Units 04:30 04:49 PT 11.4 (9.8-11.6) sec APTT 27.3 (24.3-30.1) sec B-Natriuretic Peptide 47 (0-100) pg/mL CBC 05/07/18 Range/Units 04:49 WBC 2.1 L (4.0-11.0) th/mm3 RBC 3.36 L (4.50-5.90) mil/mm3 Hgb 10.6 L (13.0-17.0) gm/dL Hct 32.4 L (39.0-51.0) % Plt Count 210 D (150-450) th/mm3 Comprehensive Metabolic Panel 05/07/18 Range/Units 04:30 Sodium 143 (136-145) meq/L Potassium 4.3 (3.5-5.1) meq/L Chloride 107 (98-107) meq/L Carbon Dioxide 28.9 (21.0-32.0) meq/L BUN 6 L (7-18) mg/dL Creatinine 0.66 (0.60-1.30) mg/dL Calcium 8.2 L (8.5-10.1) mg/dL AST 70 H (15-37) U/L ALT 41 (12-78) U/L Alkaline Phosphatase 93 (45-117) U/L Total Protein 7.5 (6.4-8.2) g/dL Albumin 3.2 L (3.4-5.0) g/dL Caprini VTE Risk Assessment Caprini VTE Risk Assessment: No/Low Risk (score <= 1) VTE Pharmacological Exception Reason: End Stage Liver Disease, High risk for bleeding Caprini Risk Assessment Model: Point Value = 1 Point Value = 2 Point Value = 3 Point Value = 5 Age 41-60 Minor surgery BMI > 25 kg/m2 Swollen legs Varicose veins or History of unexplained or recurrent spontaneous Oral contraceptives or hormone replacement Sepsis (< 1 month) Serious lung disease, including pneumonia (< 1 month) Abnormal pulmonary function Acute myocardial infarction Congestive heart failure (< 1 month) History of inflammatory bowel disease Medical patient at bed rest Age 61-74 Arthroscopic surgery Major open surgery (> 45 min) Laparoscopic surgery (> 45 min) Malignancy Confined to bed (> 72 hours) Immobilizing plaster cast Central venous access Age >= 75 History of VTE Family history of VTE Factor V Leiden Prothrombin 43525I Lupus anticoagulant Anticardiolipin antibodies Elevated serum homocysteine Heparin-induced thrombocytopenia Other congenital or acquired thrombophilia Stroke (< 1 month) Elective arthroplasty Hip, pelvis, or leg fracture Acute spinal cord injury (< 1 month) Prophylaxis Regimen: Total Risk Factor Score Risk Level Prophylaxis Regimen 0-1 Low Early ambulation 2 Moderate Order ONE of the following: *Sequential Compression Device (SCD) *Heparin 5000 units SQ BID 3-4 Higher Order ONE of the following medications: *Heparin 5000 units SQ TID *Enoxaparin/Lovenox 40 mg SQ daily (WT < 150 kg, CrCl > 30 mL/min) *Enoxaparin/Lovenox 30 mg SQ daily (WT < 150 kg, CrCl > 10-29 mL/min) *Enoxaparin/Lovenox 30 mg SQ BID (WT < 150 kg, CrCl > 30 mL/min) AND/OR *Sequential Compression Device (SCD) 5 or more Highest Order ONE of the following medications: *Heparin 5000 units SQ TID (Preferred with Epidurals) *Enoxaparin/Lovenox 40 mg SQ daily (WT < 150 kg, CrCl > 30 mL/min) *Enoxaparin/Lovenox 30 mg SQ daily (WT < 150 kg, CrCl > 10-29 mL/min) *Enoxaparin/Lovenox 30 mg SQ BID (WT < 150 kg, CrCl > 30 mL/min) AND *Sequential Compression Device (SCD) Assessment and Plan - Assessment (1) Intoxication Status: Acute (2) Malingering Code(s): Z76.5 - Malingerer [conscious simulation] Status: Acute (3) Chest pain, rule out acute myocardial infarction Code(s): R07.9 - Chest pain, unspecified Status: Acute (4) Schizo affective schizophrenia Code(s): F25.0 - Schizoaffective disorder, bipolar type Status: Acute - Plan This patient basically is presenting to the emergency room because his schizophrenia is out of control. He attributes the severe pain he is having all over his body to this. Also he also appears to be under the influence of alcohol and possibly drugs. He is homeless and hungry so it is also possible that he is malingering as well. However his mental status is certainly impaired he has a long history of significant psychiatric and drug abuse problems and is highly likely that he is suffering the effects of alcohol and drug abuse at present time. He is not a candidate for further cardiac evaluation until his medical condition can be evaluated and stabilized. We will obtain alcohol and drug levels, a psych consult in an effort to expedite his care but he will need to be admitted for further evaluation of his current situation. Code Status: Full code Discussed Condition With: patient Discharge Planning: If stress testing is negative for ischemia the patient will be discharged to outpatient follow-up with primary care physician - Attending Attestation Documentation evaluation and treatment is appropriate for this patient's presentation
[2018-05-07 11:12] LABS: Amphetamine Screen,Urine Neg (Neg); Barbiturate Screen,Urine Neg (Neg); Cannabinoid Screen,Urine Neg (Neg); Cocaine Screen,Urine Neg (Neg)
[2018-05-07 11:14] LABS: Opiate Screen,Urine Neg (Neg)
[2018-05-07 11:21] LABS: Creatine Kinase 273 U/L (39-308)
[2018-05-07] MEDS: Multivitamin/Minerals Therapeutic Tablet PO SCH (12:04)
[2018-05-07] MEDS: Folic Acid 1 MG Tablet PO SCH (12:05)
[2018-05-07] MEDS: LORazepam 1 MG Tablet PO PRN (12:06)
--- NOTE | 2018-05-07 16:54 | ECG ---
Date Performed: 05/07/2018 Time Performed: 10:49:08 PTAGE: 52 years EKG: Sinus rhythm NORMAL ECG Since the PREVIOUS TRACING , no significant change noted PREVIOUS TRACIN05/07/2018 07.23 DOCTOR: Selma Pressley Interpretating Date/Time 05/07/2018 16:53:39
--- NOTE | 2018-05-07 17:02 | ECG ---
Date Performed: 05/07/2018 Time Performed: 07:23:18 PTAGE: 52 years EKG: Sinus rhythm NORMAL ECG Since the PREVIOUS TRACING , no significant change noted PREVIOUS TRACIN05/07/2018 04.17 DOCTOR: Selma Pressley Interpretating Date/Time 05/07/2018 17:00:49
--- NOTE | 2018-05-07 17:12 | ECG ---
Date Performed: 05/07/2018 Time Performed: 04:17:08 PTAGE: 52 years EKG: Sinus rhythm MINIMAL VOLTAGE CRITERIA FOR LVH, CONSIDER NORMAL VARIANT NONSPECIFIC T-WAVE ABNORMALITY BORDERLINE ECG Since the PREVIOUS TRACING , no significant change noted DOCTOR: Selma Pressley Interpretating Date/Time 05/07/2018 17:11:01
[2018-05-08] MEDS: Acetaminophen 500 MG Tablet PO PRN ×2 (06:14→20:54)
[2018-05-08] MEDS: Folic Acid 1 MG Tablet PO SCH (08:28)
[2018-05-08] MEDS: Multivitamin/Minerals Therapeutic Tablet PO SCH (08:28)
[2018-05-08] MEDS: LORazepam 1 MG Tablet PO PRN (08:37)
--- NOTE | 2018-05-08 12:45 | P.PN ---
Subjective Interval history: Follow-up for schizophrenia. Patient is currently resting in bed. Denies any chest pain, shortness of breath, fever or chills. Physical Exam Vital signs: Vital Signs 05/07/18 15:21 05/07/18 16:00 05/07/18 20:00 Temperature 98.4 F 98.9 F Pulse Rate 78 93 H 77 Respiratory Rate 16 16 Blood Pressure 124/77 125/77 Pulse Oximetry 100 98 05/07/18 23:41 05/08/18 03:43 05/08/18 08:00 Temperature 98.6 F 98.2 F 98.8 F Pulse Rate 66 79 69 Respiratory Rate 16 16 18 Blood Pressure 132/82 131/77 141/89 H Pulse Oximetry 99 98 99 05/08/18 11:44 Temperature 97.9 F Pulse Rate 88 Respiratory Rate 18 Blood Pressure 109/70 Pulse Oximetry 98 Intake & Output 05/07/18 05/08/18 05/08/18 18:59 06:59 18:59 Intake Total 500 / 500 900 / 900 Output Total 1000 / 1000 Balance 500 / 500 -100 / -100 Weight 58.5 kg Intake: IV 500 / 500 NS Inj 500 ML @ Wide Open IV. 500 / 500 SIG BOLUS ONE Rx#:[id number] Oral 900 / 900 Output: Urine 1000 / 1000 Other: # Voids 2 Date of Last Bowel Movement 05/07/18 05/08/18 # Bowel Movements 1 Weight On Admission 58.5 kg Narrative: GENERAL: Alert, NAD. SKIN: Warm and dry. HEAD: Normocephalic. EYES: No scleral icterus. No injection or drainage. NECK: Supple, trachea midline. No JVD or lymphadenopathy. CARDIOVASCULAR: Regular rate and rhythm without murmurs, gallops, or rubs. RESPIRATORY: Breath sounds equal bilaterally. No accessory muscle use. GASTROINTESTINAL: Abdomen soft, non-tender, nondistended. MUSCULOSKELETAL: No cyanosis, or edema. BACK: Nontender without obvious deformity. No CVA tenderness. Results - Labs CBC & Chem 7: 05/07/18 04:49 05/07/18 04:30 Laboratory Results - last 24 hr 05/07/18 05/07/18 05/08/18 17:42 22:56 05:53 POC Glucose 132 H 141 H 105 05/08/18 05/08/18 08:30 11:43 POC Glucose 128 H 113 H Assessment and Plan - Plan Mr. Demarco is a 52-year-old -[place] male with a history of schizophrenia. He was initially admitted to the chest pain center. However patient really did not have any acute chest pain. Moreover, chest pain center physician recommended further workup only after addressing medical and psychiatric issues. Schizophrenia -We will wait for psychiatric evaluation. -Haloperidol 1 mg IV every 15 minutes as needed Alcohol abuse -Continue CIWA protocol, thiamine, folic acid and multivitamins. Full code. Ambulation. Patient is medically cleared. If psychiatrically recommends psychiatric unit admission, patient can be discharged.
--- NOTE | 2018-05-08 14:11 | P.CONPSY ---
Provisional Diagnosis Admission Date: May 07, 2018 05:46 [place] I.: Alcohol-induced mood disorder, alcohol use disorder, self-reported scheduled for History of Present Illness Service: ER Primary Care Provider: UNKNOWN Chief Complaint: "Schizophrenia was bothering me" History of Present Illness: The patient is a 52-year-old -[place] man, homeless, single, employed, with a psychiatric history of alcohol use disorder, alcohol induced mood and psychotic disorder, self-reported schizophrenia, he denies previous psychiatric admissions, previous suicide attempts, he is noted psychotropics, no significant medical history, who was initially admitted to the chest pain center. However patient really did not have any acute chest pain. Moreover, chest pain center physician recommended further workup only after addressing medical and psychiatric issues. Consulted to psychiatry to address potential psychosis. But, on psychiatric evaluation I find a patient that is calm, cooperative, resting, logical, coherent and relevant. The patient reports that he feels much better now. He was drunk when he came to the hospital. He reports that he was diagnosed with schizophrenia long time ago, but he has not been in medication for many years. He reports drinking alcohol every day, denies the use of other illegal drugs. At this moment the patient denies depression, denies anxiety, denies psychosis, he denies suicidal and homicidal ideation, he denies visual and auditory hallucinations. Is fully oriented 3. Review of Systems Musculoskeletal: Denies abnormal walking, Denies back pain, Denies body aches, Denies decreased muscle mass, Denies deformity, Denies joint pain, Denies joint swelling, Denies limited joint movement, Denies loss of height, Denies muscle cramps, Denies muscle weakness, Denies neck pain, Denies numbness, Denies radiating pain into limb, Denies stiffness, Denies tingling, Denies other Skin/Breast: Denies acne, Denies bleeding lesions, Denies boil, Denies breast swelling, Denies breast skin changes, Denies breast pain, Denies breast lump, Denies change in breast shape, Denies change in hair, Denies change in skin color, Denies changing lesions, Denies dry skin, Denies excessive hair growth, Denies hair loss, Denies itching, Denies lesions, Denies nail changes, Denies new lesions, Denies nipple discharge, Denies non-healing lesions, Denies redness , Denies sensitivity to light, Denies rash, Denies skin pain, Denies skin ulcer , Denies sores, Denies stretch mason, Denies unusual bruising, Denies wounds, Denies yellowing of the skin, Denies other Neurologic: Denies abnormal hearing, Denies abnormal movements, Denies abnormal speech, Denies abnormal walking, Denies behavioral changes, Denies burning sensations, Denies confusion, Denies dizziness, Denies fainting, Denies frequent falls, Denies headache(s), Denies lack of coordination, Denies localized weakness, Denies loss of vision, Denies memory loss, Denies numbness, Denies other visual disturbances, Denies radiating pain, Denies restless legs, Denies convulsions, Denies seizure-like activity, Denies sensory deficit, Denies tingling, Denies tingling/numbness/burning sensations, Denies tremor(s), Denies unsteadiness, Denies weakness, Denies other Psychiatric: Denies abnormal sleep pattern, Denies anxiety, Denies behavioral changes, Denies change in appetite, Denies change in sex drive, Denies confusion , Denies depression, Denies difficulty concentrating, Denies hearing things others do not hear, Denies hopelessness, Denies irritability, Denies lack of enjoyment, Denies memory loss, Denies mood swings, Denies panic attacks, Denies paranoia, Denies seeing things others do not see, Denies sensing things others do not sense, Denies tactile hallucinations, Denies thoughts of hurting/killing others, Denies thoughts of hurting/killing yourself, Denies other PMFSH - History History Provided By: Patient (The patient has no meaningful understanding of his past medical history other than the fact that he has used drugs and drinks fairly heavily. He does understand that he has schizophrenia but there is no meaningful past history from the patient. Review of his hospital chart is most helpful) - Medical History Medical History: Medical History (Last Reviewed 05/07/18 @ 03:45 by Zack Johnson) Asthma Schizophrenia - Surgical History Surgical History: Surgical History (Last Reviewed 05/07/18 @ 03:45 by Zack Johnson) No history of previous surgery - Family History Family History: Family History (Last Reviewed 04/29/18 @ 04:54 by Deisy Bartholomew MD) Other Family history of acute myocardial infarction Family history of breast cancer Family history of cancer Family history of colon cancer Family history of diabetes mellitus Family history of hypertension - Tobacco History Second Hand Smoke Exposure: No Smoking Status: Former smoker Tobacco Type: Cigarettes - Alcohol History How Often Do You Have a Drink Containing Alcohol: 4 or more times a week - Substance Use History Substance History: Active Abuse - Substance Use Type Alcohol Type: 2-3 beers per day Status: Active - Travel History Recent Travel in the [place] Within the Last 8 Weeks: No Recent Travel Out of the Country Within the Last 8 Weeks: No - Immunization History Tetanus Immunization: Unsure Hx Influenza Vaccine This Season: No Medications and Allergies Active Medications: Active Medications Acetaminophen (Tylenol) 500 mg PO Q4H PRN PRN Reason: HEADACHE Last Admin: 05/08/18 06:14 Dose: 500 mg Flumazenil (Romazecon Inj) 0.2 mg IV.PUSH Q1M PRN PRN Reason: OVERSEDATION Folic Acid (Folic Acid) 1 mg PO DAILY LAURA Stop: 05/12/18 10:44 Last Admin: 05/08/18 08:28 Dose: 1 mg Haloperidol Lactate (Haldol Inj) 1 mg IV.PUSH Q15M PRN PRN Reason: for severe agitation Lorazepam (Ativan) 1 mg PO Q4H PRN PRN Reason: for CIWA 8-10 Last Admin: 05/08/18 08:37 Dose: 1 mg Lorazepam (Ativan) 2 mg PO Q2H PRN PRN Reason: for CIWA 11-14 Lorazepam (Ativan Inj) 2 mg IV.PUSH Q2H PRN PRN Reason: for CIWA 11-14 Lorazepam (Ativan Inj) 2 mg IV.PUSH Q15M PRN PRN Reason: for CIWA > 20 Lorazepam (Ativan Inj) 1 mg IV.PUSH Q4H PRN PRN Reason: for CIWA 8-10 Lorazepam (Ativan Inj) 2 mg IV.PUSH Q1H PRN PRN Reason: for CIWA 15-20 Multivitamins/Minerals (Theragran-M) 1 tab PO DAILY LAURA Stop: 05/12/18 10:44 Last Admin: 05/08/18 08:28 Dose: 1 tab Nitroglycerin (Nitrostat Sl) 0.4 mg SL Q5M PRN PRN Reason: CHEST PAIN Ondansetron HCl (Zofran Odt) 4 mg PO Q6H PRN PRN Reason: NAUSEA Sodium Chloride (Ns Flush) 2 ml IV.FLUSH PRN PRN PRN Reason: FLUSH AFTER USING IV ACCESS Sodium Chloride (Ns Flush) 2 ml IV.FLUSH PRN PRN PRN Reason: FLUSH AFTER USING IV ACCESS Sodium Chloride (Ns Flush) 2 ml IV.FLUSH BID [facility] Last Admin: 05/08/18 08:29 Dose: 2 ml Thiamine HCl (Vitamin B1) 100 mg PO DAILY [facility] Last Admin: 05/08/18 08:28 Dose: 100 mg Allergies Allergy/AdvReac Type Severity Reaction Status Date / Time No Known Allergies Allergy Verified 05/07/18 03:28 Home Medications Medication Instructions Recorded Confirmed Type No Known Home Medications 04/29/18 05/07/18 History Exam Vital signs: Vital Signs 05/07/18 15:21 05/07/18 16:00 05/07/18 20:00 Temperature 98.4 F 98.9 F Pulse Rate 78 93 H 77 Respiratory Rate 16 16 Blood Pressure 124/77 125/77 Pulse Oximetry 100 98 05/07/18 23:41 05/08/18 03:43 05/08/18 08:00 Temperature 98.6 F 98.2 F 98.8 F Pulse Rate 66 79 69 Respiratory Rate 16 16 18 Blood Pressure 132/82 131/77 141/89 H Pulse Oximetry 99 98 99 05/08/18 11:44 Temperature 97.9 F Pulse Rate 88 Respiratory Rate 18 Blood Pressure 109/70 Pulse Oximetry 98 Intake & Output 05/07/18 05/08/18 05/08/18 18:59 06:59 18:59 Intake Total 500 / 500 900 / 900 Output Total 1000 / 1000 Balance 500 / 500 -100 / -100 Weight 58.5 kg Intake: IV 500 / 500 NS Inj 500 ML @ Wide Open IV. 500 / 500 SIG BOLUS ONE Rx#:[id number] Oral 900 / 900 Output: Urine 1000 / 1000 Other: # Voids 2 Date of Last Bowel Movement 05/07/18 05/08/18 # Bowel Movements 1 Weight On Admission 58.5 kg Mental Status Examination Appearance: Appropriate Consciousness: Alert Orientation: x4 Motor Activity: Normal gait Speech: Unremarkable Language: Adequate Fund of Knowledge: Adequate Memory: Unremarkable Mood: Appropriate Affect: Appropriate Thought Process & Associations: Intact Thought Content: Appropriate Hallucination Type: None Suicidal Ideation: No Suicidal Plan: No Suicidal Intention: No Homicidal Ideation: No Homicidal Plan: No Homicidal Intention: No Insight: Fair Judgment: Impulsive Assessment and Plan - Assessment (1) Alcohol-induced mood disorder Code(s): F10.94 - Alcohol use, unspecified with alcohol-induced mood disorder Status: Acute - Plan Plan: Estimated LOS: [] days Psychiatric evaluation today the patient does not present any significant, concerning or acute neuropsychiatric symptoms that require an immediate psychiatric intervention. The patient denies suicidal and homicidal ideation, he denies visual and auditory hallucinations. The patient is logical, coherent and relevant. He self-report psychiatric history of schizophrenia, alcohol use disorder, but no previous psychiatric hospitalizations, no previous suicidal attempts, is noted psychotropics. He reports daily use of alcohol. He does not meet criteria for involuntary psychiatric admission at this moment. His initial complaint of "my schizophrenia is bothering" the context of alcohol intoxication seems to be more closer to conscious simulation with secondary gain and to acute alcohol intoxication and to a primary psychotic decompensation. Extensive support, motivational psych education provided. Continue CIWA. Justification for Continued Inpatient Stay: No admission is indicated
[2018-05-09 00:50] VITALS: O2SAT 99
[2018-05-09 08:24] VITALS: BP 136/70; RESP 20; TEMP 98.2
--- NOTE | 2018-05-09 08:51 | ECG ---
Date Performed: 05/08/2018 Time Performed: 14:22:15 PTAGE: 52 years EKG: Sinus rhythm POSSIBLE LEFT VENTRICULAR HYPERTROPHY AND ST-T CHANGE ABNORMAL ECG NO PREVIOUS TRACING DOCTOR: Carlton Prasad Interpretating Date/Time 05/09/2018 08:51:03
[2018-05-09] MEDS: Multivitamin/Minerals Therapeutic Tablet PO SCH (09:10)
[2018-05-09] MEDS: Folic Acid 1 MG Tablet PO SCH (09:10)
--- NOTE | 2018-05-09 13:04 | P.DS ---
Date of admission: 05/07/18 05:46 Primary care physician: UNKNOWN Brief History from admission: 52-year-old black male with multiple emergency room encounters in the past ( frequent flyer). He is currently slowly responsive but does interact. When asked why he came to the hospital he states that his schizophrenia was bothering him. His ability to provide history is severely impaired. Mini- Mental was carried out and as documented impairment but is difficult to determine whether this is short-term secondary to alcohol or drugs or long- term. He does state that when his schizophrenia gets upset that he gets sick but has difficulty explaining what sick means. Eventually we were able to understand that this means that he has pain in his back legs chest stomach that he currently rates it as 8 out of 10. When this happens it goes on for weeks at a time. He gets some relief by taking Tylenol. He states that he has not done drugs for a couple weeks but that he does drink as much beer a day as he can get hold off. He has been taking some over the counter medications and some prescriptions but unlikely that his prescriptions are from a physician. Seems unable to tell us what they are. He believes he last saw a psychiatrist about 2 years ago. He is unable to tell us where he was born or where he came from but apparently from the [place] area. He states that he got there by bus. The history provided to the emergency room physician is not repeated on our exam he does not talk about difficulty breathing chest pain or his cough. He does indicate that he is homeless has no place to stay her sleep. He has been arrested apparently at least several times in the past but it is unclear when or for what. Review of his past records indicate diagnosis of schizophrenia bipolar disorder anxiety depression COPD drug usage alcoholism pancreatitis DS: Medications - Discharge Medications Prescriptions: folic acid 1 mg PO DAILY #30 tab yxwpoivb-mcyh-TL-calcium-mins [Thera M Plus (ferrous fumarat)] 1 tab PO DAILY # 30 tab thiamine HCl (vitamin B1) 100 mg PO DAILY #30 tab DS: Summary Hospital Course: Mr. Demarco is a 52-year-old -[place] male with a history of schizophrenia. He was initially admitted to the chest pain center. However patient really did not have any acute chest pain. Moreover, chest pain center physician recommended further workup only after addressing medical and psychiatric issues. Schizophrenia -Psychiatry evaluated patient and indicated that patient denies suicidal and homicidal ideation, he denies visual and auditory hallucinations. The patient is logical, coherent and relevant. He self-report psychiatric history of schizophrenia, alcohol use disorder, but no previous psychiatric hospitalizations, no previous suicidal attempts, is noted psychotropics. No psychiatric admission recommended. Alcohol abuse -Continue [facility] protocol, thiamine, folic acid and multivitamins. Full code. Ambulation. No acute medical issues. Patient is being discharged. - Time Spent with Patient Total time spent providing and/or coordinating discharge services: Less than 30 minutes - Quality: VTE Deep Vein Thrombosis/Pulmonary Embolism Present on Admission: No Exam Vital signs: Vital Signs 05/08/18 14:00 05/08/18 14:05 05/08/18 16:00 Temperature 98.8 F 98.3 F Pulse Rate 133 H 117 H 91 H Respiratory Rate 16 18 Blood Pressure 122/95 H 131/86 Pulse Oximetry 98 100 05/08/18 16:43 05/08/18 20:00 05/09/18 00:00 Temperature 98.5 F 97.9 F Pulse Rate 93 H 80 71 Respiratory Rate 16 16 Blood Pressure 126/78 131/83 Pulse Oximetry 98 99 05/09/18 00:17 05/09/18 04:00 05/09/18 08:22 Temperature 98.1 F 98.2 F Pulse Rate 90 66 70 Respiratory Rate 16 20 Blood Pressure 132/84 136/70 Pulse Oximetry 99 05/09/18 08:44 05/09/18 10:09 Temperature Pulse Rate 79 Respiratory Rate Blood Pressure Pulse Oximetry 99 Intake & Output 05/08/18 05/09/18 05/09/18 18:59 06:59 18:59 Output Total 225 / 225 Balance -225 / -225 Output: Urine 225 / 225 Other: # Voids 4 Date of Last Bowel Movement 05/08/18 05/09/18 # Bowel Movements 1 Narrative: GENERAL: Alert, NAD. SKIN: Warm and dry. HEAD: Normocephalic. EYES: No scleral icterus. No injection or drainage. NECK: Supple, trachea midline. No JVD or lymphadenopathy. CARDIOVASCULAR: Regular rate and rhythm without murmurs, gallops, or rubs. RESPIRATORY: Breath sounds equal bilaterally. No accessory muscle use. GASTROINTESTINAL: Abdomen soft, non-tender, nondistended. MUSCULOSKELETAL: No cyanosis, or edema. BACK: Nontender without obvious deformity. No CVA tenderness. Results Procedures completed during hospitalization: None. Labs on day of discharge: Labs from last 24 hours 05/09/18 05/08/18 05/08/18 08:46 22:51 18:31 POC Glucose 113 H 104 117 H - Impressions ITS Impressions Chest X-Ray 05/07/18 03:52 CONCLUSION: No acute cardiopulmonary disease. Discharge Plan - Discharge Disposition Patient Disposition: Discharge Home - Discharge Condition Condition: Good - Discharge Order Discharge Orders: Discharge Order (Routine); Ordered 05/09/18 Ordered By: Alma Romero - Discharge Details Anticipated Discharge Date: 05/09/18 - Physicians Team Primary Care Provider: UNKNOWN, Attending Provider: Alma Romero Other Providers: Haile Harris MD ; Alma Romero DO
[2018-05-13 17:52] VITALS: PULSE 79
== END 2018-05-09 11:40 | disposition home or self-care (01) ==
LOC: NEDA 03:26 → NEPE 03:26 → NEPGCP 03:26
PROVIDERS: ADMIT Hospitalist; ATTEND Hospitalist

== ENCOUNTER 2018-05-18 17:38 | Inpatient (IN) ==
[2018-05-18] MEDS ORDERED: Aluminum/Magnesium/Simethacone Susp 30 ML UDC PO ONE (19:29)
[2018-05-18] MEDS ORDERED: Sod Chloride 0.9% Inj 1,000 ML IV.SIG ONE (19:29)
[2018-05-18 20:22] LABS: Baso % (Auto) 0.5 % (0.0-2.0); Eos % (Auto) 0.4 % (0.0-4.0); Hematocrit 35.8 % (39.0-51.0); Hemoglobin 11.6 gm/dL (13.0-17.0); Lymph # (Auto) 0.9 th/mm3 (1.0-4.8); Lymph % (Auto) 24.3 % (9.0-44.0); Mean Corpuscular HGB Conc 32.4 % (32.0-36.0); Mean Corpuscular Hemoglobin 31.8 pg (27.0-34.0); Mean Corpuscular Volume 98.3 fL (80.0-100.0); Mono # (Auto) 0.3 th/mm3 (0.0-0.9); Mono % (Auto) 8.2 % (0.0-8.0); Neut # (Auto) 2.4 th/mm3 (1.8-7.7); Neut % (Auto) 66.6 % (16.0-70.0); Platelet Count 164 th/mm3 (150-450); Red Blood Count 3.65 mil/mm3 (4.50-5.90); Red Cell Distribution Width 12.4 % (11.6-17.2); White Blood Count 3.5 th/mm3 (4.0-11.0)
[2018-05-18 20:46] LABS: Alanine Aminotransferase 29 U/L (12-78)
[2018-05-18 20:48] LABS: Alkaline Phosphatase 86 U/L (45-117); Total Protein 7.9 g/dL (6.4-8.2)
[2018-05-18 20:51] LABS: Albumin 3.5 g/dL (3.4-5.0); Anion Gap 12 meq/L (5-15); Aspartate Aminotransferase 41 U/L (15-37); Blood Urea Nitrogen 4 mg/dL (7-18); Calcium 8.4 mg/dL (8.5-10.1); Carbon Dioxide 23.2 meq/L (21.0-32.0); Chloride 105 meq/L (98-107); Glomerular Filtration Rate Greater Than 89 mL/min (>89); Glucose,Random 154 mg/dL (74-106); Lipase 1139 U/L (73-393); Potassium 3.3 meq/L (3.5-5.1); Sodium 140 meq/L (136-145)
--- NOTE | 2018-05-18 21:04 | ED ---
HPI General Chief Complaint: Abdominal Pain Stated Complaint: abd pain/evac Time Seen by Provider: 05/18/18 17:57 Source: patient Mode of arrival: ambulatory Limitations: no limitations History of Present Illness HPI narrative: 52-year-old male patient arrives with complaint of abdominal pain. History is limited by the fact that the patient does not answer questions. EMS reported a history of abdominal pain. In the room the patient nodded yes when asked if he had abdominal pain however was unable to nod yes or notes any other question. Review of the records show that he has been here before multiple times for alcohol-related complaints, abdominal pain, psychiatric complaints and homelessness. History is therefore limited in this scenario. Related Data Home Medications Medication Instructions Recorded Confirmed No Known Home Medications 04/29/18 05/18/18 Previous Rx's Medication Instructions Recorded oenlqfyk-bqca-SD-calcium-mins 1 tab PO DAILY #30 tab 05/09/18 [Thera M Plus (ferrous fumarat)] thiamine HCl (vitamin B1) 100 mg PO DAILY #30 tab 05/09/18 Allergies Allergy/AdvReac Type Severity Reaction Status Date / Time No Known Allergies Allergy Verified 05/18/18 18:09 Review of Systems ROS Unobtainable ROS Unobtainable: unobtainable due to mental status (Noncompliant with history physical exam) PMFSH Social History Social History Substance History: No History of Abuse Second Hand Smoke Exposure: No Smoking Status: Smoker, status unknown Tobacco Type: Cigarettes How Often Do You Have a Drink Containing Alcohol: 2 to 4 times a month Immunization History Tetanus Immunization: Unsure Hx Influenza Vaccine This Season: No Exam Narrative Exam Narrative: GENERAL: 52-year-old male, poorly cooperative with history physical exam, although the affect is agreeable overall SKIN: Focused skin assessment warm/dry. HEAD: Atraumatic. Normocephalic. EYES: Pupils equal and round. No scleral icterus. No injection or drainage. ENT: No nasal bleeding or discharge. Mucous membranes pink and moist. NECK: Trachea midline. No JVD. CARDIOVASCULAR: Regular rate and rhythm. No murmur appreciated. RESPIRATORY: No accessory muscle use. Clear to auscultation. Breath sounds equal bilaterally. GASTROINTESTINAL: Soft. Nonspecific tenderness in the epigastrium. MUSCULOSKELETAL: No obvious deformities. No clubbing. No cyanosis. No edema. NEUROLOGICAL: Cranial nerves are symmetric. The patient is moving all extremities normally. Patient can nod yes to questioning. PSYCHIATRIC: Poorly cooperative. No aggressive or belligerent. Course Initial Documented Vital Signs Temperature 98.9 F 05/18/18 17:56 Pulse Rate 99 H 05/18/18 17:56 Respiratory Rate 18 05/18/18 17:56 Blood Pressure 121/74 05/18/18 17:56 Pulse Oximetry 97 05/18/18 17:56 Last Documented Vital Signs Temperature 98.9 F 05/18/18 17:56 Pulse Rate 99 H 05/18/18 17:56 Respiratory Rate 18 05/18/18 17:56 Blood Pressure 121/74 05/18/18 17:56 Pulse Oximetry 97 05/18/18 17:56 Medical Decision Making MDM Narrative Medical decision making narrative: Patient is pancreatitis. We see multiple prior elevated alcohol level in the past. See no GI documentation on record. Patient will be admitted for IV hydration. CT scan abdomen and pelvis added on. d/w Dr Salcedo. Lab Data Lab results reviewed: Yes I reviewed the patient's lab results. Lab results narrative: Lipase is 1139 Alcohol level is 43 Result diagrams: 05/18/18 19:50 05/18/18 19:50 Lab Results 05/18/18 05/18/18 05/18/18 Range/Units 19:50 19:50 19:50 WBC 3.5 L (4.0-11.0) th/mm3 RBC 3.65 L (4.50-5.90) mil/mm3 Hgb 11.6 L (13.0-17.0) gm/dL Hct 35.8 L (39.0-51.0) % MCV 98.3 (80.0-100.0) fL MCH 31.8 (27.0-34.0) pg MCHC 32.4 (32.0-36.0) % RDW 12.4 (11.6-17.2) % Plt Count 164 (150-450) th/mm3 MPV 8.0 (7.0-11.0) fL Neut % (Auto) 66.6 (16.0-70.0) % Lymph % (Auto) 24.3 (9.0-44.0) % [place] % (Auto) 8.2 H (0.0-8.0) % Eos % (Auto) 0.4 (0.0-4.0) % Baso % (Auto) 0.5 (0.0-2.0) % Neut # (Auto) 2.4 (1.8-7.7) th/mm3 Lymph # (Auto) 0.9 L (1.0-4.8) th/mm3 [place] # (Auto) 0.3 (0.0-0.9) th/mm3 Eos # (Auto) 0.0 (0.0-0.4) th/mm3 Baso # (Auto) 0.0 (0.0-0.2) th/mm3 WBC Differential . Differential Comment Auto diff final Sodium 140 (136-145) meq/L Potassium 3.3 L (3.5-5.1) meq/L Chloride 105 (98-107) meq/L Carbon Dioxide 23.2 (21.0-32.0) meq/L Anion Gap 12 (5-15) meq/L BUN 4 L (7-18) mg/dL Creatinine 0.75 (0.60-1.30) mg/dL Estimated GFR Greater than 89 (>89) mL/min Random Glucose 154 H (74-106) mg/dL Calcium 8.4 L (8.5-10.1) mg/dL Total Bilirubin 0.4 (0.2-1.0) mg/dL AST 41 H (15-37) U/L ALT 29 (12-78) U/L Alkaline Phosphatase 86 (45-117) U/L Total Protein 7.9 (6.4-8.2) g/dL Albumin 3.5 (3.4-5.0) g/dL Lipase 1139 H (73-393) U/L Serum Alcohol 41 H (0-5) mg/dL Imaging Data Radiologist's impression: Abdomen/Pelvis CT 05/18/18 21:12 CONCLUSION: 1. Mild stranding opacity adjacent to the pancreas indicating possible acute pancreatitis. No organized fluid collections. 2. Cholelithiasis. 3. Hepatic steatosis. Discharge Plan Discharge Disposition Patient Disposition: 30 Still Patient Physicians Team ED Provider: Abran Dey Primary Care Provider: UNKNOWN, Attending Provider: Sheila Salcedo Status ED Status: Admitted Observation Patient
[2018-05-18] MEDS ORDERED: Temazepam 15 MG Capsule PO PRN (22:18)
[2018-05-18] MEDS ORDERED: Bisacodyl 10 MG Supp RECTAL PRN (22:18)
--- NOTE | 2018-05-18 22:18 | CT ---
EXAM DATE: 05/18/2018 10:10 PM EDT AGE/SEX: 52 years / Male INDICATIONS: Abdominal pain and elevated lipase; possible pancreatitis. CLINICAL DATA: This is the patient's initial encounter. Patient reports that signs and symptoms have been present for 1 day and indicates a pain score of 6/10. MEDICAL/SURGICAL HISTORY: Asthma. Schizophrenia None. ORAL CONTRAST: No oral contrast ingested. RADIATION DOSE: 7.48 CTDI (mGy) COMPARISON: [facility] [place] ABDOMEN & PELVIS W CONTRAST, 12/03/2017. . TECHNIQUE: Multiple contiguous axial images were obtained through the abdomen and pelvis following b olus infusion of 96 ml Omnipaque 350 (iohexol) nonionic water-soluble contrast as a single exam dos e. No oral contrast ingested. Using automated exposure control and adjustment of the mA and/or kV ac cording to patient size, radiation dose was kept as low as reasonably achievable to obtain optimal di agnostic quality images. DICOM format image data is available electronically for review and comparis on. FINDINGS: Lower Lungs: The visualized lower lungs are clear. Liver: Mild diffuse hypodensity of the liver indicating hepatic steatosis. Multiple calcified gallsto tory with the largest measuring 1.8 cm. No pericholecystic inflammatory change. No biliary ductal dila tation identified. Spleen: Homogeneous density without enlargement. Pancreas: Mild stranding opacity in the fat adjacent to the pancreas indicating mild findings of acu te pancreatitis. No necrotic areas identified. No organized fluid collections. Kidneys: Normal in size and shape. No evidence of mass or hydronephrosis. Adrenal Glands: Unremarkable. Aorta: The aorta and proximal iliac vessels are grossly unremarkable without aneurysmal dilation. Bowel/Mesentery: No evidence of bowel dilatation. No free air or free fluid. Appendix not identified . Abdominal Wall: Intact. Retroperitoneum: No evidence of adenopathy in the retrocrural, para-aortic, or deep pelvic regions. Bladder: Contours are smooth. Reproductive Organs: No abnormal masses or calcifications seen. Inguinal: The inguinal region is unremarkable without evidence of adenopathy. Bony Structures: Deformity of the pubic bones about the pubic symphysis again seen. CONCLUSION: 1. Mild stranding opacity adjacent to the pancreas indicating possible acute pancreatitis. No organi zed fluid collections. 2. Cholelithiasis. 3. Hepatic steatosis. Electronically signed by: Doni Pimentel MD 05/18/2018 10:16 PM EDT
[2018-05-18] MEDS ORDERED: LORazepam 1 MG Tablet PO PRN (22:20)
[2018-05-18] MEDS ORDERED: Haloperidol Inj 5 MG/ML Ampul IV.PUSH PRN ×2 (22:20→22:26)
[2018-05-18] MEDS ORDERED: Potassium Chloride 25 MEQ Effervescent Tablet PO ONE (22:30)
--- NOTE | 2018-05-18 22:31 | P.HP ---
History of Present Illness Service: [facility] Primary Care Physician: UNKNOWN History of Present Illness: 52-year-old male with a known past medical history significant for alcohol abuse and self-reported schizophrenia presents to the emergency department for evaluation of abdominal pain. Patient reports epigastric pain that is significantly worse with palpation. Given the patient's mental status it is difficult to achieve a meaningful history or review of systems. His abdomen is tender to palpation in the epigastrium. He is shaky but denies audio/visual hallucinations. Review of Systems unobtainable due to mental status PMFSH - History History Provided By: Patient - Medical History Medical History: Medical History (Last Reviewed 05/07/18 @ 03:45 by Zack Johnson) Asthma Schizophrenia - Surgical History Surgical History: Surgical History (Last Reviewed 05/07/18 @ 03:45 by Zack Johnson) No history of previous surgery - Family History Family History: Family History (Last Reviewed 04/29/18 @ 04:54 by Deisy Bartholomew MD) Other Family history of acute myocardial infarction Family history of breast cancer Family history of cancer Family history of colon cancer Family history of diabetes mellitus Family history of hypertension - Tobacco History Second Hand Smoke Exposure: No Tobacco Use In Past 30 Days: No Smoking Status: Smoker, status unknown Tobacco Type: Cigarettes - Alcohol History How Often Do You Have a Drink Containing Alcohol: 2 to 4 times a month - Substance Use History Substance History: No History of Abuse - Immunization History Tetanus Immunization: Unsure Hx Influenza Vaccine This Season: No Medications and Allergies Active Medications: Active Medications Al Hydroxide/Mg Hydroxide (Milk Of Magnesia Liq) 30 ml PO Q12H PRN PRN Reason: Mild Constipation Bisacodyl (Dulcolax Supp) 10 mg RECTAL DAILY PRN PRN Reason: SEVERE CONSITIPATION Flumazenil (Romazecon Inj) 0.2 mg IV.PUSH Q1M PRN PRN Reason: OVERSEDATION Folic Acid (Folic Acid) 1 mg PO DAILY [facility] Stop: 05/24/18 08:59 Haloperidol Lactate (Haldol Inj) 1 mg IV.PUSH Q15M PRN PRN Reason: for severe agitation Sodium Chloride (Ns Inj) 1,000 mls @ 100 mls/hr IV.CONT .Q10H [facility] Lactulose (Lactulose Liq) 30 ml PO DAILY PRN PRN Reason: SEVERE CONSITIPATION Lorazepam (Ativan) 1 mg PO Q4H PRN PRN Reason: for CIWA 8-10 Lorazepam (Ativan) 2 mg PO Q2H PRN PRN Reason: for CIWA 11-14 Lorazepam (Ativan Inj) 2 mg IV.PUSH Q2H PRN PRN Reason: for CIWA 11-14 Lorazepam (Ativan Inj) 2 mg IV.PUSH Q1H PRN PRN Reason: for CIWA 15-20 Lorazepam (Ativan Inj) 2 mg IV.PUSH Q15M PRN PRN Reason: for CIWA > 20 Lorazepam (Ativan Inj) 1 mg IV.PUSH Q4H PRN PRN Reason: for CIWA 8-10 Multivitamins/Minerals (Theragran-M) 1 tab PO DAILY [facility] Stop: 05/24/18 08:59 Ondansetron HCl (Zofran Inj) 4 mg IV.PUSH Q6H PRN PRN Reason: NAUSEA OR VOMITING Senna/Docusate Sodium (Grisel-Colace) 1 tab PO BID [facility] Sennosides (Senokot) 17.2 mg PO Q12H PRN PRN Reason: Moderate Constipation Sodium Chloride (Ns Flush) 2 ml IV.FLUSH PRN PRN PRN Reason: FLUSH AFTER USING IV ACCESS Temazepam (Restoril) 15 mg PO HS PRN PRN Reason: INSOMNIA Thiamine HCl (Vitamin B1) 100 mg PO DAILY [facility] Allergies Allergy/AdvReac Type Severity Reaction Status Date / Time No Known Allergies Allergy Verified 05/18/18 18:09 Home Medications Medication Instructions Recorded Confirmed Type No Known Home Medications 04/29/18 05/18/18 History Exam Vital signs: Vital Signs 05/18/18 17:56 Temperature 98.9 F Pulse Rate 99 H Respiratory Rate 18 Blood Pressure 121/74 Pulse Oximetry 97 Intake & Output 05/18/18 05/18/18 05/19/18 06:59 18:59 06:59 Weight 2.523 kg Narrative: Gen.: No acute distress. Tremulous. Head: Normocephalic. Atraumatic. EENT: Pupils equal round and reactive to light. Nose without drainage. Airway intact. Throat without injection. Cardiovascular: Regular rate and rhythm. No murmurs, rubs or gallops. Respiratory: Lungs clear to auscultation bilaterally. No wheezes or rhonchi. Abdomen: Soft, exquisitely tender to palpation in the epigastric, nondistended. No peritoneal signs. Musculoskeletal: No gross deformities. No edema. Skin: No obvious rashes or erythema. Neuro: Sensory and motor grossly intact. Cranial nerves II through XII grossly intact. Psych: Alert and oriented 3. Able to appropriately answer simple questions. Results - Labs CBC & Chem 7: 05/18/18 19:50 05/18/18 19:50 Labs: Laboratory Results - last 24 hr 05/18/18 05/18/18 05/18/18 19:50 19:50 19:50 WBC 3.5 L RBC 3.65 L Hgb 11.6 L Hct 35.8 L MCV 98.3 MCH 31.8 MCHC 32.4 RDW 12.4 Plt Count 164 MPV 8.0 Neut % (Auto) 66.6 Lymph % (Auto) 24.3 [place] % (Auto) 8.2 H Eos % (Auto) 0.4 Baso % (Auto) 0.5 Neut # (Auto) 2.4 Lymph # (Auto) 0.9 L [place] # (Auto) 0.3 Eos # (Auto) 0.0 Baso # (Auto) 0.0 WBC Differential . Differential Comment Auto diff final Sodium 140 Potassium 3.3 L Chloride 105 Carbon Dioxide 23.2 Anion Gap 12 BUN 4 L Creatinine 0.75 Estimated GFR Greater than 89 Random Glucose 154 H Calcium 8.4 L Total Bilirubin 0.4 AST 41 H ALT 29 Alkaline Phosphatase 86 Total Protein 7.9 Albumin 3.5 Lipase 1139 H Serum Alcohol 41 H - Imaging Impressions Abdomen/Pelvis CT 05/18/18 21:12 CONCLUSION: 1. Mild stranding opacity adjacent to the pancreas indicating possible acute pancreatitis. No organized fluid collections. 2. Cholelithiasis. 3. Hepatic steatosis. Caprini VTE Risk Assessment Caprini VTE Risk Assessment: No/Low Risk (score <= 1) Caprini Risk Assessment Model: Point Value = 1 Point Value = 2 Point Value = 3 Point Value = 5 Age 41-60 Minor surgery BMI > 25 kg/m2 Swollen legs Varicose veins or History of unexplained or recurrent spontaneous Oral contraceptives or hormone replacement Sepsis (< 1 month) Serious lung disease, including pneumonia (< 1 month) Abnormal pulmonary function Acute myocardial infarction Congestive heart failure (< 1 month) History of inflammatory bowel disease Medical patient at bed rest Age 61-74 Arthroscopic surgery Major open surgery (> 45 min) Laparoscopic surgery (> 45 min) Malignancy Confined to bed (> 72 hours) Immobilizing plaster cast Central venous access Age >= 75 History of VTE Family history of VTE Factor V Leiden Prothrombin [id number] Lupus anticoagulant Anticardiolipin antibodies Elevated serum homocysteine Heparin-induced thrombocytopenia Other congenital or acquired thrombophilia Stroke (< 1 month) Elective arthroplasty Hip, pelvis, or leg fracture Acute spinal cord injury (< 1 month) Prophylaxis Regimen: Total Risk Factor Score Risk Level Prophylaxis Regimen 0-1 Low Early ambulation 2 Moderate Order ONE of the following: *Sequential Compression Device (SCD) *Heparin 5000 units SQ BID 3-4 Higher Order ONE of the following medications: *Heparin 5000 units SQ TID *Enoxaparin/Lovenox 40 mg SQ daily (WT < 150 kg, CrCl > 30 mL/min) *Enoxaparin/Lovenox 30 mg SQ daily (WT < 150 kg, CrCl > 10-29 mL/min) *Enoxaparin/Lovenox 30 mg SQ BID (WT < 150 kg, CrCl > 30 mL/min) AND/OR *Sequential Compression Device (SCD) 5 or more Highest Order ONE of the following medications: *Heparin 5000 units SQ TID (Preferred with Epidurals) *Enoxaparin/Lovenox 40 mg SQ daily (WT < 150 kg, CrCl > 30 mL/min) *Enoxaparin/Lovenox 30 mg SQ daily (WT < 150 kg, CrCl > 10-29 mL/min) *Enoxaparin/Lovenox 30 mg SQ BID (WT < 150 kg, CrCl > 30 mL/min) AND *Sequential Compression Device (SCD) Assessment and Plan - Plan Assessment/plan: 1. Pancreatitis Patient with history of elevated lipase, likely secondary to alcohol abuse CT abdomen/pelvis pending Likely some chronic component Clear liquid diet IV fluid hydration Not currently requiring IV pain medication 2. ? Schizophrenia Patient was evaluated by psychiatry in consultation on 05/08/18 and was found to be of sound mind. He did not have any acute psychosis at that time and does not have any today. He denies suicidal/homicidal ideation. He has had no previous psychiatric hospitalizations or suicide attempts. The patient denies taking any psychiatric medications. He will need outpatient follow-up Case management consulted to assist 3. Alcohol abuse [facility] protocol Thiamine/folate/multivitamin Monitor for signs of withdrawal Cessation counseling provided FEN Clear liquid diet Electrolytes: Status post p.o. repletion of potassium, monitor BMP NS at 100 cc/hour
[2018-05-18] MEDS: Sod Chloride 0.9% Inj 1,000 ML IV.CONT SCH (23:26)
[2018-05-19] MEDS: Folic Acid 1 MG Tablet PO SCH (08:43)
[2018-05-19] MEDS: Senna/Docusate Sodium 8.6/50 MG Tablet PO SCH ×2 (08:43→20:41)
[2018-05-19] MEDS: Sod Chloride 0.9% Inj 1,000 ML IV.CONT SCH ×2 (08:43→19:00)
[2018-05-19] MEDS: Multivitamin/Minerals Therapeutic Tablet PO SCH (08:43)
--- NOTE | 2018-05-19 13:45 | P.PNIM ---
Subjective Interval history: The patient said that he was still having 6 out of 10 abdominal pain. He indicated some mild nausea. He said he was a little shaky from the alcohol withdrawal. He did want to eat something. Discussed with nursing. Physical Exam Vital signs: Vital Signs 05/18/18 17:56 05/18/18 23:25 05/19/18 03:49 Temperature 98.9 F 99.1 F 99.3 F Pulse Rate 99 H 88 68 Respiratory Rate 18 Blood Pressure 121/74 148/44 H 139/75 Pulse Oximetry 97 98 98 05/19/18 04:00 05/19/18 09:22 Temperature Pulse Rate 71 Respiratory Rate Blood Pressure Pulse Oximetry 96 Intake & Output 05/18/18 05/19/18 05/19/18 18:59 06:59 18:59 Intake Total 0 / 0 1000 / 1000 Balance 0 / 0 1000 / 1000 Weight 2.523 kg 65.7 kg Intake: IV 1000 / 1000 NS Inj 1,000 ML @ 100 mls/hr IV 1000 / 1000 .CONT .Q10H [facility] Rx#:[id number] Oral 0 / 0 Other: # Voids 2 # Bowel Movements 0 Weight On Admission 65.771 kg Narrative: Gen.: No acute distress. Tremulous. Head: Normocephalic. Atraumatic. EENT: Pupils equal round and reactive to light. Nose without drainage. Airway intact. Throat without injection. Cardiovascular: Regular rate and rhythm. No murmurs, rubs or gallops. Respiratory: Lungs clear to auscultation bilaterally. No wheezes or rhonchi. Abdomen: Soft, tender to palpation in the epigastric area, nondistended. No peritoneal signs. Musculoskeletal: No gross deformities. No edema. Skin: No obvious rashes or erythema. Neuro: Sensory and motor grossly intact. Cranial nerves II through XII grossly intact. A&Ox3. Results - Labs CBC & Chem 7: 05/18/18 19:50 05/18/18 19:50 Laboratory Results - last 24 hr 05/18/18 05/18/18 05/18/18 19:50 19:50 19:50 WBC 3.5 L RBC 3.65 L Hgb 11.6 L Hct 35.8 L MCV 98.3 MCH 31.8 MCHC 32.4 RDW 12.4 Plt Count 164 MPV 8.0 Neut % (Auto) 66.6 Lymph % (Auto) 24.3 [place] % (Auto) 8.2 H Eos % (Auto) 0.4 Baso % (Auto) 0.5 Neut # (Auto) 2.4 Lymph # (Auto) 0.9 L [place] # (Auto) 0.3 Eos # (Auto) 0.0 Baso # (Auto) 0.0 WBC Differential . Differential Comment Auto diff final Sodium 140 Potassium 3.3 L Chloride 105 Carbon Dioxide 23.2 Anion Gap 12 BUN 4 L Creatinine 0.75 Estimated GFR Greater than 89 Random Glucose 154 H Calcium 8.4 L Total Bilirubin 0.4 AST 41 H ALT 29 Alkaline Phosphatase 86 Total Protein 7.9 Albumin 3.5 Lipase 1139 H Serum Alcohol 41 H - Imaging Impressions Abdomen/Pelvis CT 05/18/18 21:12 CONCLUSION: 1. Mild stranding opacity adjacent to the pancreas indicating possible acute pancreatitis. No organized fluid collections. 2. Cholelithiasis. 3. Hepatic steatosis. Assessment and Plan - Plan Pancreatitis Patient with abdominal pain, nausea and elevated lipase, likely secondary to alcohol abuse. CT abdomen/pelvis indicating possible acute pancreatitis. -NPO with IVFs. Clear liquid diet when improves. -pain control and antiemetics as needed. -trend LFTs. Alcohol abuse The pt says he drinks beer. -CIWA protocol. -Thiamine/folate/multivitamin. -Cessation counseling provided. Hypokalemia S/t above. -replete and monitor. Anemia/ Leukopenia Possibly s/t alcohol induced bone marrow suppression. -monitor. PPx: Ambulation
[2018-05-19 16:17] LABS: Albumin 3.4 g/dL (3.4-5.0); Anion Gap 10 meq/L (5-15); Aspartate Aminotransferase 35 U/L (15-37); Blood Urea Nitrogen 4 mg/dL (7-18); Calcium 8.6 mg/dL (8.5-10.1); Carbon Dioxide 25.5 meq/L (21.0-32.0); Chloride 103 meq/L (98-107); Glomerular Filtration Rate Greater Than 89 mL/min (>89); Glucose,Random 77 mg/dL (74-106); Potassium 3.4 meq/L (3.5-5.1); Sodium 138 meq/L (136-145)
[2018-05-19 16:18] LABS: Alanine Aminotransferase 23 U/L (12-78)
[2018-05-19 16:20] LABS: Alkaline Phosphatase 85 U/L (45-117); Total Protein 7.5 g/dL (6.4-8.2)
[2018-05-20] MEDS: Sod Chloride 0.9% Inj 1,000 ML IV.CONT SCH (05:15)
[2018-05-20 05:49] LABS: Baso % (Auto) 0.7 % (0.0-2.0); Eos % (Auto) 1.7 % (0.0-4.0); Hemoglobin 11.8 gm/dL (13.0-17.0); Lymph # (Auto) 0.6 th/mm3 (1.0-4.8); Lymph % (Auto) 22.4 % (9.0-44.0); Mean Corpuscular HGB Conc 32.9 % (32.0-36.0); Mean Corpuscular Hemoglobin 32.1 pg (27.0-34.0); Mean Corpuscular Volume 97.7 fL (80.0-100.0); Mono # (Auto) 0.2 th/mm3 (0.0-0.9); Mono % (Auto) 7.7 % (0.0-8.0); Neut % (Auto) 67.5 % (16.0-70.0); Platelet Count 114 th/mm3 (150-450); Red Blood Count 3.69 mil/mm3 (4.50-5.90); Red Cell Distribution Width 12.2 % (11.6-17.2); White Blood Count 2.9 th/mm3 (4.0-11.0)
[2018-05-20 06:27] LABS: Alanine Aminotransferase 23 U/L (12-78); Albumin 3.2 g/dL (3.4-5.0); Alkaline Phosphatase 80 U/L (45-117); Anion Gap 14 meq/L (5-15); Aspartate Aminotransferase 27 U/L (15-37); Blood Urea Nitrogen 6 mg/dL (7-18); Calcium 8.4 mg/dL (8.5-10.1); Carbon Dioxide 21.3 meq/L (21.0-32.0); Chloride 105 meq/L (98-107); Glomerular Filtration Rate Greater Than 89 mL/min (>89); Lipase 538 U/L (73-393); Potassium 3.6 meq/L (3.5-5.1); Sodium 140 meq/L (136-145)
[2018-05-20 06:31] LABS: Glucose,Random 49 mg/dL (74-106)
[2018-05-20] MEDS ORDERED: Dextrose 50% in Water Syringe 50 ML ONE (06:34)
[2018-05-20] MEDS ORDERED: KCL 20 mEq/D5W/NaCl 0.45% Inj 1,000 ML IV.CONT SCH (08:45)
[2018-05-20] MEDS: Senna/Docusate Sodium 8.6/50 MG Tablet PO SCH (10:49)
[2018-05-20] MEDS: Multivitamin/Minerals Therapeutic Tablet PO SCH (10:49)
[2018-05-20] MEDS: Folic Acid 1 MG Tablet PO SCH (10:49)
[2018-05-20 13:00] VITALS: BP 142/88; PULSE 94; RESP 22; TEMP 98.6; O2SAT 100
--- NOTE | 2018-05-20 15:55 | P.PNIM ---
Subjective Interval history: The patient was ambulating the hallways. He wanted to go home. He said he tolerated his liquid diet. He said he would need a bus pass. Discussed with case management. Physical Exam Vital signs: Vital Signs 05/19/18 20:00 05/20/18 00:00 05/20/18 04:00 Temperature 98.6 F 98.1 F 98.2 F Pulse Rate 63 79 79 Respiratory Rate 19 16 16 Blood Pressure 151/84 H 144/86 H 150/90 H Pulse Oximetry 96 97 97 05/20/18 08:00 05/20/18 12:00 Temperature 97.8 F 98.6 F Pulse Rate 103 H 94 H Respiratory Rate 18 22 Blood Pressure 132/77 142/88 H Pulse Oximetry 96 100 Intake & Output 05/19/18 05/20/18 05/20/18 18:59 06:59 18:59 Intake Total 2000 / 2000 1000 / 1000 Output Total 1200 / 1200 Balance 800 / 800 1000 / 1000 Weight 66 kg Intake: IV 1999 / 1999 1000 / 1000 NS Inj 1,000 ML @ 100 mls/hr IV 2000 / 2000 1000 / 1000 .CONT .Q10H [facility] Rx#:[id number] Output: Urine 1200 / 1200 Other: Date of Last Bowel Movement 05/18/18 05/18/18 05/20/18 # Bowel Movements 1 Narrative: Gen.: No acute distress. Tremulous. Head: Normocephalic. Atraumatic. EENT: Pupils equal round and reactive to light. Nose without drainage. Airway intact. Throat without injection. Cardiovascular: Regular rate and rhythm. No murmurs, rubs or gallops. Respiratory: Lungs clear to auscultation bilaterally. No wheezes or rhonchi. Abdomen: Soft, nondistended. No peritoneal signs. Musculoskeletal: No gross deformities. No edema. Skin: No obvious rashes or erythema. Neuro: Sensory and motor grossly intact. Cranial nerves II through XII grossly intact. A&Ox3. Results - Labs CBC & Chem 7: 05/20/18 04:44 05/20/18 04:44 Laboratory Results - last 24 hr 05/19/18 05/19/18 05/20/18 14:22 14:22 04:44 WBC 2.9 L RBC 3.69 L Hgb 11.8 L Hct 36.0 L MCV 97.7 MCH 32.1 MCHC 32.9 RDW 12.2 Plt Count 114 L D MPV 8.0 Neut % (Auto) 67.5 Lymph % (Auto) 22.4 [place] % (Auto) 7.7 Eos % (Auto) 1.7 Baso % (Auto) 0.7 Neut # (Auto) 2.0 Lymph # (Auto) 0.6 L [place] # (Auto) 0.2 Eos # (Auto) 0.0 Baso # (Auto) 0.0 WBC Differential . Differential Comment Auto diff final Sodium 138 Potassium 3.4 L Chloride 103 Carbon Dioxide 25.5 Anion Gap 10 BUN 4 L Creatinine 0.59 L Estimated GFR Greater than 89 POC Glucose Random Glucose 77 Calcium 8.6 Total Bilirubin 0.8 Direct Bilirubin Indirect Bilirubin AST 35 ALT 23 Alkaline Phosphatase 85 Total Protein 7.5 Albumin 3.4 Lipase 602 H 05/20/18 05/20/18 05/20/18 04:44 06:37 06:58 WBC RBC Hgb Hct MCV MCH MCHC RDW Plt Count MPV Neut % (Auto) Lymph % (Auto) [place] % (Auto) Eos % (Auto) Baso % (Auto) Neut # (Auto) Lymph # (Auto) [place] # (Auto) Eos # (Auto) Baso # (Auto) WBC Differential Differential Comment Sodium 140 Potassium 3.6 Chloride 105 Carbon Dioxide 21.3 Anion Gap 14 BUN 6 L Creatinine 0.56 L Estimated GFR Greater than 89 POC Glucose 62 L 120 H Random Glucose 49 L* Calcium 8.4 L Total Bilirubin 0.9 Direct Bilirubin 0.3 H Indirect Bilirubin 0.6 AST 27 ALT 23 Alkaline Phosphatase 80 Total Protein 7.0 Albumin 3.2 L Lipase 538 H Assessment and Plan - Plan Pancreatitis Patient with abdominal pain, nausea and elevated lipase, likely secondary to alcohol abuse. CT abdomen/pelvis indicating possible acute pancreatitis. Lipase improving. Tolerating clears. -the pt would like to be discharged. Advance to soft diet and d/c if tolerates. -pain control and antiemetics as needed. Alcohol abuse The pt says he drinks beer. -CIWA protocol. -Thiamine/folate/multivitamin. -Cessation counseling provided. Hypokalemia S/t above. -replete and monitor. D/c on KCl PO. Hypoglycemia S/t NPO status. -ADAT. -on D5. Thrombocytopenia Likely s/t alcohol induced bone marrow suppression. -monitor. -alcohol cessation. PPx: Ambulation
== END 2018-05-20 16:59 | disposition home or self-care (01) ==
LOC: NEDA 17:38 → NEPD 17:38 → N06 23:10
PROVIDERS: ADMIT Hospitalist; ATTEND Hospitalist